=== PATIENT | male | born 1955 | race Caucasian/White ===

== ENCOUNTER 2018-11-04 14:51 | Inpatient (IN) | payer MEDICAID, MEDICARE ==
[~2018-11-04] VITALS: Ht 177.8 cm; Wt 79.2 kg
[~2018-11-04 14:51] MED LIST: CLON2TAB PO; QUET300T2 PO; SULF1TAB48 PO
--- NOTE | 2018-11-04 15:10 | NUR ---
[id number], FROM HOME, C/O UNABLE TO URINATE SINCE LAST NIGHT, WITH BURNING SENSATION. PAIN IS 8/10. DENIES DIZZINESS, WEAKNESS. SKIN INTACT AND NO ACUTE DISTRESS NOTED. READY FOR EVAL.
[2018-11-04 15:24] LABS: BASOPHILS % (AUTO) 0.6 % (0.0-2.0); EOSINOPHILS % (AUTO) 3.2 % (0.0-6.0); HEMATOCRIT 46 % (39-51); HEMOGLOBIN 15.6 g/dL (13.5-17.5); LYMPHOCYTES # (AUTO) 1.9 /CMM (0.8-4.8); LYMPHOCYTES % (AUTO) 31.1 % (20.0-44.0); MEAN CORPUSCULAR HGB CONC 34 g/dl (31.0-36.0); MEAN CORPUSCULAR VOLUME 93 fL (80-96); MONOCYTES % (AUTO) 16.4 % (2.0-12.0); NEUTROPHILS % (AUTO) 48.7 % (43.0-81.0); PLATELET COUNT (AUTO) 288 /CMM (150-450); RED BLOOD CELL COUNT(AUTO) 4.92 MIL/uL (4.5-6.0); WHITE BLOOD COUNT (AUTO) 6.1 K/uL (4.3-11.0)
[2018-11-04] MEDS ORDERED: IV NS 0.9% 1,000 ML IV ONE (15:30)
[2018-11-04] MEDS ORDERED: MORPHINE SULFATE INJ 2 MG/ML DISP.SYRIN IV ONE ×2 (15:30→20:30)
[2018-11-04] MEDS ORDERED: IV NS 0.9% 1,000 ML BAG IV ONE ×2 (15:30)
[2018-11-04] MEDS ORDERED: PIPERACILLIN /TAZOBACTAM 3.375 G in IV D5W 50 ML IV ONE (15:30)
[2018-11-04] MEDS ORDERED: MORPHINE SULFATE INJ 2 MG/ML DISP.SYRIN ONE ×2 (15:31→19:45)
[2018-11-04 15:33] LABS: CALCIUM, SERUM 8.8 mg/dL (8.5-10.1); CREATININE 0.9 mg/dL (0.6-1.3); POTASSIUM 3.4 mmol/L (3.5-5.1)
[2018-11-04 15:35] LABS: ALBUMIN 3.7 g/dL (3.4-5.0); BILIRUBIN,DIRECT 0.1 mg/dL (0.0-0.2); BILIRUBIN,TOTAL 0.3 mg/dL (0.2-1.0); TOTAL PROTEIN, SERUM 7.1 g/dL (6.4-8.2)
[2018-11-04 17:03] LABS: APPEARANCE,URINE Clear (CLEAR); BILIRUBIN,URINE Negative (NEGATIVE); BLOOD, URINE Moderate Ery/uL (NEGATIVE); COLOR,URINE Yellow (YELLOW); KETONES,URINE Negative (NEGATIVE); LEUKOCYTE ESTERASE ,URINE Negative (NEGATIVE); NITRITE, URINE Negative (NEGATIVE); PH,URINE 6.5 (5.0-8.0); PROTEIN,URINE Negative (NEGATIVE); UGLUCOSE Negative (NEGATIVE); UROBILINOGEN,URINE 0.2 EU/dL (0.2)
--- NOTE | 2018-11-04 17:07 | NUR ---
PROVIDED FOOD TRAY
[2018-11-04 17:12] LABS: BACTERIA,URINE Rare /HPF (None Seen); RBC,URINE 21-50 /HPF (0-2); SQUAMOUS EPITHELIAL CELL,UR Few /HPF (None Seen); WBC,URINE 0-2 /HPF (0-3)
[2018-11-04] MEDS ORDERED: ACETAMINOPHEN 325 MG TABLET PO PRN (19:30)
[2018-11-04] MEDS ORDERED: TAMSULOSIN 0.4 MG CAP.SR.24H PO ONE (19:30)
[2018-11-04] MEDS ORDERED: ONDANSETRON HCL/PF 4 MG/2 ML VIAL IVP PRN (19:30)
[2018-11-04] MEDS ORDERED: MAGNESIUM HYDROXIDE 30 ML UDC PO PRN (19:30)
[2018-11-04] MEDS ORDERED: Z GUARD REMEDY 2 OZ OINT TP PRN (19:30)
[2018-11-04] MEDS ORDERED: ZOLPIDEM TARTRATE 5 MG TABLET PO PRN (19:30)
--- NOTE | 2018-11-04 19:35 | NUR ---
PT C/O PAIN 04/17, REQUESTING MEDICATION. MD AWARE. MADE PT COMFORTABLE
[2018-11-04] MEDS ORDERED: OXYBUTYNIN CHLORIDE 5 MG TABLET ONE (19:45)
--- NOTE | 2018-11-04 19:55 | NUR ---
CALLED HOUSE SUP (2ND TIME) [facility] TELE BED.
--- NOTE | 2018-11-04 20:07 | NUR ---
Patient is resting comfortably in bed with eyes closed. Easily aroused. VSS
[2018-11-04] MEDS ORDERED: OXYBUTYNIN CHLORIDE 5 MG TABLET PO ONE (20:30)
--- NOTE | 2018-11-04 20:43 | NUR ---
MEDSUR BED 328-B
[2018-11-04 21:00] VITALS: BP 115/70
--- NOTE | 2018-11-04 21:05 | NUR ---
REPORT GIVEN TO DONNA VALERIO 328-2 [facility]
--- NOTE | 2018-11-04 21:15 | NUR ---
[facility]
[2018-11-04 21:20] VITALS: BP 115/70
--- NOTE | 2018-11-04 21:20 | NUR ---
RN NOTES RECEIVED PT. FROM ER WITH DX. OF URINARY RETENTION, A/OX4, , COUDE CASE CATHETER WAS INSERTED IN ER, PER PATIENT THEY TRIED TO INSERT IT 3X, NOTICED F/C WAS LEAKING AND OUTPUT WAS REDDISH...INFORMED CHARGE NURSE AND CALLED ICU CHARGE IF THEY CAN FIX IT, ADMISSION INSTRUCTION WAS RENDERED, CALL LIGHT WITHIN REACH, SIDERAILSUPX2, CONTINUE TO MONITOR
--- NOTE | 2018-11-04 21:30 | NUR ---
RN NOTES PT. REFUSED TO HAVE HIS BILATERAL LOWER EXTREMITIES CHECKED
--- NOTE | 2018-11-04 22:00 | NUR ---
RN NOTES ICU CHARGE NURSE CAME AND CHECK PT'S CASE CATHETER.. ICU CHARGE NURSE DEFLATE IT AND INFLATE THE BALLOON AGAIN WITH 10ML NS
[2018-11-04] MEDS ORDERED: CEFTRIAXONE 1 G VIAL ONE (22:34)
[2018-11-04] MEDS ORDERED: TAMSULOSIN 0.4 MG CAP.SR.24H ONE (22:38)
[2018-11-04] MEDS: CEFTRIAXONE 1 G in IV D5W 50 ML IV SCH (22:40)
--- NOTE | 2018-11-05 00:22 | NUR ---
RN NOTES PT. WAS A LITTLE BIT ANXIOUS AND WAS ASKING FOR ATIVAN.. PT STATED "THE LAST TIME HE WAS HERE THEY GAVE HIM ATIVAN AND IT HELPED HIM A LOT" DR. VALERA ORDERED ATIVAN 0.5MG IV ONCE..ORDER NOTED AND CARRIED OUT
[2018-11-05] MEDS ORDERED: LORAZEPAM INJ 2 MG/ML VIAL IV ONE (00:30)
--- NOTE | 2018-11-05 00:39 | NUR ---
RN NOTES PT. IS A LITTLE BIT ANXIOUS - ATIVAN 0.5MG IV GIVEN ORDERED, V/S STABLE
[2018-11-05] MEDS: MAG HYDROX/AL HYDROX/SIMETH 30 ML UDC PO PRN ×2 (05:29→18:10)
[2018-11-05] MEDS: HYDROCODONE/APAP 5/325MG 1 EACH TABLET PO PRN ×4 (06:31→21:24)
--- NOTE | 2018-11-05 06:34 | NUR ---
RN NOTES COMPLAINED OF PAIN ON HIS PRIVATE PART- NORCO 5/325MG PO GIVEN ORDERED, V/S STABLE
--- NOTE | 2018-11-05 06:36 | NUR ---
RN NOTES PT. CASE CATHETER STILL LEAKING A LITTLE BIT BUT PT. DOESN'T LET US TO TOUCH IT, HE'S GOING TO WAIT FOR THE DOCTOR TO COME THIS MORNING,. PT. REFUSED CHANGE HIS LINEN AND BLANKETCALL LIGHT WITHIN REACH, SDIERAILSUPX2, PT. NEEDS ATTENDED
--- NOTE | 2018-11-05 07:20 | NUR ---
RN OPENING NOTES PT AWAKE AND RESTING IN BED. PT COMPLAINS THAT HIS CASE CATHETER IS UNCOMFORTABLE. AT THIS TIME THE CASE IS DRAINING WELL. WILL CONTINUE TO FOLLOW UP WITH PAIN MANAGEMENT NEEDED AND PRESCRIBED. PT HAS A RIGHT AC #20 INTACT. SAFETY PRECAUTIONS IN PLACE, BED IN LOWEST LOCKED POSITION, X2 SIDE RAILS UP AND CALL LIGHT WITHIN REACH. WILL CONTINUE TO MONITOR.
[2018-11-05 07:49] LABS: BASOPHILS % (AUTO) 0.4 % (0.0-2.0); EOSINOPHILS % (AUTO) 5.3 % (0.0-6.0); HEMATOCRIT 45 % (39-51); HEMOGLOBIN 15.1 g/dL (13.5-17.5); LYMPHOCYTES # (AUTO) 1.6 /CMM (0.8-4.8); LYMPHOCYTES % (AUTO) 21.1 % (20.0-44.0); MEAN CORPUSCULAR HGB CONC 34 g/dl (31.0-36.0); MEAN CORPUSCULAR VOLUME 93 fL (80-96); MONOCYTES # (AUTO) 1.1 /CMM (0.1-1.30); MONOCYTES % (AUTO) 14.1 % (2.0-12.0); NEUTROPHILS # (AUTO) 4.5 /CMM (1.8-8.9); NEUTROPHILS % (AUTO) 59.1 % (43.0-81.0); PLATELET COUNT (AUTO) 256 /CMM (150-450); RED BLOOD CELL COUNT(AUTO) 4.84 MIL/uL (4.5-6.0); WHITE BLOOD COUNT (AUTO) 7.7 K/uL (4.3-11.0)
[2018-11-05 07:59] LABS: ALBUMIN 3.4 g/dL (3.4-5.0); BILIRUBIN,TOTAL 0.3 mg/dL (0.2-1.0); CALCIUM, SERUM 8.9 mg/dL (8.5-10.1); CREATININE 0.8 mg/dL (0.6-1.3); PHOSPHORUS 2.4 mg/dL (2.5-4.9); POTASSIUM 3.9 mmol/L (3.5-5.1); TOTAL PROTEIN, SERUM 6.8 g/dL (6.4-8.2)
[2018-11-05 08:00] VITALS: BP 140/96
[2018-11-05 09:24] LABS: FREE PSA 0.87 ng/mL (0.00-45); PROSTATE SPECIFIC ANTIGEN SCR 10.61 ng/mL (0.00-4.00)
[2018-11-05] MEDS: NICOTINE PATCH (21MG) 21 MG PATCH.TD24 TD SCH (09:46)
[2018-11-05] MEDS: clonazePAM 1 MG TABLET PO SCH (09:46)
[2018-11-05] MEDS ORDERED: K PHOS NEUTRAL 250 MG TABLET PO ONE (11:30)
[2018-11-05 16:00] VITALS: BP 128/74
--- NOTE | 2018-11-05 18:59 | NUR ---
RN CLOSING NOTES PT AWAKE AND RESTING IN BED. STILL AWAITING UROLOGY CONSULT. PAIN MANAGED WITH PRN NORCO 5/325. PT REQUESTED MAALOX. PT HAS A RIGHT AC #20 INTACT. SAFETY PRECAUTIONS IN PLACE, BED IN LOWEST LOCKED POSITION, X2 SIDE RAILS UP AND CALL LIGHT WITHIN REACH. WILL ENDORSE TO ROUND KILN DRAWER FOR CONTINUITY OF CARE.
--- NOTE | 2018-11-05 19:30 | NUR ---
RN NOTES RECEIVED PT. AWAKE ON BED, F/C DRAINING CLEAR TAYLOR IN COLOR, DENIES PAIN, NO SOB, CALL LIGHT WITHIN REACH, SDIERAILSUPX2, CONTINUE TO MONITOR
[2018-11-05 20:00] VITALS: BP 104/57
[2018-11-05] MEDS: CEFTRIAXONE 1 G in IV D5W 50 ML IV SCH (21:24)
--- NOTE | 2018-11-05 21:30 | NUR ---
RN NOTES COMPLAINED OF PAIN ON HIS PRIVATE PART- NORCO 5/325MG PO GIVEN ORDERED, V/S STABLE
--- NOTE | 2018-11-05 22:10 | NUR ---
RN NOTES DR. DELGADO CAME AND TALKED TO THE PATIENT
[2018-11-05] MEDS ORDERED: TAMSULOSIN 0.4 MG CAP.SR.24H PO SCH (22:30)
[2018-11-05] MEDS: FINASTERIDE (5 MG) 5 MG TABLET PO SCH (22:43)
--- NOTE | 2018-11-06 06:30 | NUR ---
RN NOTES SLEEPING BUT AROUSABLE, F/C IN PLACE, NO PAIN NOTED, NO SOB, CALL LIGHT WITHIN REACH, SIDERAILSUPX2, PT. NEEDS ATTENDED
[2018-11-06] MEDS: clonazePAM 1 MG TABLET PO SCH (07:01)
--- NOTE | 2018-11-06 07:30 | NUR ---
RN OPENING NOTES PT AWAKE AND RESTING IN BED. PT STATED THAT HE WILL BE LEAVING TODAY AND WILL FOLLOW UP WITH UROLOGIST. WILL FOLLOW UP WITH HOSPITALIST. WILL CONTINUE TO FOLLOW UP WITH PAIN MANAGEMENT NEEDED AND PRESCRIBED. PT HAS A RIGHT AC #20 INTACT. SAFETY PRECAUTIONS IN PLACE, BED IN LOWEST LOCKED POSITION, X2 SIDE RAILS UP AND CALL LIGHT WITHIN REACH. WILL CONTINUE TO MONITOR.
[2018-11-06 08:00] VITALS: BP 133/98
[2018-11-06] MEDS: NICOTINE PATCH (21MG) 21 MG PATCH.TD24 TD SCH (08:29)
[2018-11-06] MEDS: FINASTERIDE (5 MG) 5 MG TABLET PO SCH (08:29)
[2018-11-06 08:45] LABS: CALCIUM, SERUM 9.1 mg/dL (8.5-10.1); CREATININE 0.6 mg/dL (0.6-1.3); PHOSPHORUS 2.1 mg/dL (2.5-4.9); POTASSIUM 4.3 mmol/L (3.5-5.1)
[2018-11-06] MEDS: HYDROCODONE/APAP 5/325MG 1 EACH TABLET PO PRN (08:54)
[2018-11-06] MEDS: MAG HYDROX/AL HYDROX/SIMETH 30 ML UDC PO PRN (08:55)
--- NOTE | 2018-11-06 09:24 | NUR ---
RN NOTES PER GONSALEZ REMOVE CASE CATHETER AND FOLLOW UP WITH URINE OUTPUT. CASE CATHETER REMOVED. WILL CONTINUE TO MONITOR.
--- NOTE | 2018-11-06 10:00 | NUR ---
RN NOTES PT URINATING WELL WITHOUT CASE CATHETER. NOW REQUESTING TO LEAVE. WILL FOLLOW UP WITH DR URIOSTEGUI.
--- NOTE | 2018-11-06 12:45 | NUR ---
CONTINUUM OF CARE MANAGER NOTES PT VITAL SIGNS STABLE AT DISCHARGE. CASE CATHETER REMOVED, AND PATIENT URINATING WELL. DISCHARGE PRESCRIPTIONS GIVEN TO PATIENT. CIGARETTES AND SPECIAL PROJECTS MANAGER RETURNED BACK TO THE PATIENT. ALL PATIENT BELONGINGS TAKEN HOME WITH PATIENT. ALL DISCHARGE PAPER WORK EXPLAINED, SIGNED, COPIED, AND GIVEN TO THE PATIENT. IV REMOVED. PT AMBULATORY, PT LEFT UNIT AT 1245.
== END 2018-11-06 11:52 | disposition home or self-care (01) | DRG 690 ==
LOC: ER 14:51 → MED 21:05
PROVIDERS: ADMIT Internal Medicine; ATTEND Internal Medicine
DX: N39.0 Urinary tract infection, site not specified (principal); E87.1 Hypo-osmolality and hyponatremia; M84.48XA Pathological fracture, other site, initial encounter for fracture; E87.6 Hypokalemia; R33.8 Other retention of urine; N40.1 Benign prostatic hyperplasia with lower urinary tract symptoms; E11.9 Type 2 diabetes mellitus without complications; I10 Essential (primary) hypertension; M19.90 Unspecified osteoarthritis, unspecified site; Z98.890 Other specified postprocedural states; Z87.440 Personal history of urinary (tract) infections
CPT/HCPCS: 36415; 80048-TC; 80053-TC; 80061-TC; 80076-TC; 81000-TC; 83605-TC; 83690-TC; 83735-TC; 84100-TC; 84153-TC; 84154-TC; 85025-TC; 85730-TC; 87040-TC; 87081-TC; 87086-TC; G0378; J0696; J2060; J2270; J2543; J7030; J7050; J7060

== ENCOUNTER 2018-12-09 16:30 | Emergency (ER) | payer MEDICARE ==
[~2018-12-09] VITALS: Ht 177.8 cm; Wt 77.6 kg
--- NOTE | 2018-12-09 16:37 | NUR ---
BIB RA FROM HOME, C/O GENERALIZED WEAKNES,DIARRHEa and nausea x 3 days. -VOMIT, -FEVER. SKIN WARM, DRY, INTACT. NO ACUTE DISTRESS NOTED. AOX4, AMB, VSS, RR EVEN AND UNLABORED ON RA. HOOKED TO MONITOR. READY FOR EVAL.
[2018-12-09] MEDS ORDERED: ONDANSETRON HCL/PF 4 MG/2 ML VIAL ONE (16:57)
[2018-12-09] MEDS ORDERED: MORPHINE SULFATE INJ 4 MG/ML DISP.SYRIN ONE (16:58)
[2018-12-09] MEDS ORDERED: MORPHINE SULFATE INJ 2 MG/ML DISP.SYRIN IV ONE (17:00)
[2018-12-09] MEDS ORDERED: ONDANSETRON HCL/PF 4 MG/2 ML VIAL IVP ONE (17:00)
[2018-12-09] MEDS ORDERED: IV NS 0.9% 1,000 ML BAG IV ONE (17:00)
[2018-12-09 17:19] LABS: BASOPHILS # (AUTO) 0.1 /CMM (0.0-0.2); BASOPHILS % (AUTO) 0.9 % (0.0-2.0); EOSINOPHILS % (AUTO) 1.3 % (0.0-6.0); HEMATOCRIT 44 % (39-51); HEMOGLOBIN 14.7 g/dL (13.5-17.5); LYMPHOCYTES # (AUTO) 2.2 /CMM (0.8-4.8); LYMPHOCYTES % (AUTO) 32.8 % (20.0-44.0); MEAN CORPUSCULAR HGB CONC 33 g/dl (31.0-36.0); MEAN CORPUSCULAR VOLUME 93 fL (80-96); MONOCYTES # (AUTO) 0.7 /CMM (0.1-1.30); MONOCYTES % (AUTO) 10.6 % (2.0-12.0); NEUTROPHILS # (AUTO) 3.7 /CMM (1.8-8.9); NEUTROPHILS % (AUTO) 54.4 % (43.0-81.0); PLATELET COUNT (AUTO) 280 /CMM (150-450); WHITE BLOOD COUNT (AUTO) 6.8 K/uL (4.3-11.0)
[2018-12-09 17:33] LABS: ALANINE AMINOTRANSFERASE 14 U/L (12-78); ALBUMIN 3.5 g/dL (3.4-5.0); ALKALINE PHOSPHATASE 73 U/L (46-116); ASPARTATE AMINOTRANSFERASE 12 U/L (15-37); BILIRUBIN,DIRECT 0.1 mg/dL (0.0-0.2); BILIRUBIN,TOTAL 0.1 mg/dL (0.2-1.0); CALCIUM, SERUM 8.9 mg/dL (8.5-10.1); CARBON DIOXIDE 28 mmol/L (21-32); CHLORIDE 107 mmol/L (98-107); CREATININE 0.9 mg/dL (0.6-1.3); LIPASE 120 U/L (73-393); POTASSIUM 3.1 mmol/L (3.5-5.1); SODIUM SERUM 143 mmol/L (136-145); TOTAL PROTEIN, SERUM 6.9 g/dL (6.4-8.2); UREA NITROGEN, BLOOD 5 mg/dL (7-18)
[2018-12-09] MEDS ORDERED: POTASSIUM CHLORIDE 20 MEQ TAB.PRT.SR PO ONE ×2 (17:49→18:00)
[2018-12-09 17:57] LABS: GLUCOSE 105 mg/dL (74-106)
--- NOTE | 2018-12-09 18:32 | NUR ---
Patient is resting comfortably in bed with eyes closed. Easily aroused. VSS
[2018-12-09 18:46] LABS: APPEARANCE,URINE Clear (CLEAR); BILIRUBIN,URINE Negative (NEGATIVE); BLOOD, URINE Negative Ery/uL (NEGATIVE); COLOR,URINE Yellow (YELLOW); KETONES,URINE Negative (NEGATIVE); LEUKOCYTE ESTERASE ,URINE Small (NEGATIVE); NITRITE, URINE Positive (NEGATIVE); PH,URINE 6.5 (5.0-8.0); PROTEIN,URINE Negative (NEGATIVE); UGLUCOSE Negative (NEGATIVE); UROBILINOGEN,URINE 0.2 EU/dL (0.2)
[2018-12-09 19:01] LABS: BACTERIA,URINE Moderate /HPF (None Seen); RBC,URINE 0-2 /HPF (0-2); SQUAMOUS EPITHELIAL CELL,UR Few /HPF (None Seen); URINE AMORPHOUS URATE Few /HPF (None Seen)
[2018-12-09] MEDS ORDERED: CEFTRIAXONE 1GM BAG (ER ONLY) 1 GM/50 ML PIGGYBACK IV ONE (19:30)
[2018-12-09] MEDS ORDERED: CEFTRIAXONE 1GM BAG (ER ONLY) 50 ML IV ONE (19:32)
--- NOTE | 2018-12-09 20:03 | NUR ---
IV removed. Catheter intact and site benign. Pressure and 4x4 applied to site. No bleeding noted. Patient discharged to home in stable condition. Written and verbal after care instructions given. Patient verbalizes understanding of instruction.
[2018-12-09 20:51] VITALS: BP 122/80
== END 2018-12-09 20:03 | disposition home or self-care (01) ==
LOC: ER 16:33
DX: N39.0 Urinary tract infection, site not specified (principal); E87.6 Hypokalemia; E11.9 Type 2 diabetes mellitus without complications; R19.7 Diarrhea, unspecified; F17.200 Nicotine dependence, unspecified, uncomplicated; Z98.890 Other specified postprocedural states
CPT/HCPCS: 36415; 71045; 80048; 80076; 81001; 83690; 83735; 84484; 85025; 87077; 87086; 87186; 93005; 96361; 96365; 96375; 99284; J0696; J2270; J2405; J7030; 81000-TC

== ENCOUNTER 2019-04-20 12:10 | Inpatient (IN) | payer MEDICARE, MEDICAID ==
[~2019-04-20] VITALS: Ht 177.8 cm; Wt 75.3 kg
--- NOTE | 2019-04-20 12:10 | NUR ---
BIB RA 890, EX CALLED 911 WHEN HE CAME INTO HER HOME SINCE HE DIDN'T HAVE A PLACE TO STAY. A/OX4, BREATHING EVEN AND UNLABORED, NO SOB NOTED, KEPT COMFORTABLE IN BED, CHANGED INTO GOWN, ATTACHED TO THE CANAL STRUCTURE OPERATOR.
[2019-04-20] MEDS ORDERED: ALBUTEROL FS 2.5 MG/3 ML VIAL.NEB NEB ONE (12:30)
[2019-04-20] MEDS ORDERED: IPRATROPIUM NEB FS 0.5 MG/2.5 ML AMPUL.NEB NEB ONE (12:30)
[2019-04-20 12:50] LABS: BASOPHILS # (AUTO) 0.1 /CMM (0.0-0.2); BASOPHILS % (AUTO) 0.7 % (0.0-2.0); EOSINOPHILS % (AUTO) 1.1 % (0.0-6.0); HEMATOCRIT 43 % (39-51); HEMOGLOBIN 14.6 g/dL (13.5-17.5); LYMPHOCYTES # (AUTO) 1.8 /CMM (0.8-4.8); LYMPHOCYTES % (AUTO) 19.3 % (20.0-44.0); MEAN CORPUSCULAR HGB CONC 34 g/dl (31.0-36.0); MEAN CORPUSCULAR VOLUME 94 fL (80-96); MONOCYTES # (AUTO) 0.6 /CMM (0.1-1.30); MONOCYTES % (AUTO) 6.9 % (2.0-12.0); NEUTROPHILS # (AUTO) 6.6 /CMM (1.8-8.9); PLATELET COUNT (AUTO) 207 /CMM (150-450); RED BLOOD CELL COUNT(AUTO) 4.56 MIL/uL (4.5-6.0); WHITE BLOOD COUNT (AUTO) 9.2 K/uL (4.3-11.0)
[2019-04-20] MEDS ORDERED: IPRATROPIUM NEB FS 0.5 MG/2.5 ML AMPUL.NEB ONE (12:51)
[2019-04-20] MEDS ORDERED: ALBUTEROL FS 2.5 MG/3 ML VIAL.NEB ONE (12:51)
[2019-04-20 12:59] LABS: CALCIUM, SERUM 8.7 mg/dL (8.5-10.1); CARBON DIOXIDE 26 mmol/L (21-32); CHLORIDE 105 mmol/L (98-107); GLUCOSE 133 mg/dL (74-106); POTASSIUM 3.8 mmol/L (3.5-5.1); SODIUM SERUM 141 mmol/L (136-145); UREA NITROGEN, BLOOD 6 mg/dL (7-18)
[2019-04-20 13:11] LABS: B-TYPE NATRIURETIC PEPTIDE 384 PG/ML (0-125)
--- NOTE | 2019-04-20 14:09 | NUR ---
CALLED MOLY[employer] STEAMER OPERATOR FOR HOMELESS RESOURCES
--- NOTE | 2019-04-20 14:56 | NUR ---
PATIENT SEEN BY ARDMORE GRINDER SET UP OPERATOR EXTERNAL. PATIENT C/O FEELING DEPRESSED, WANT TO BE ADMITTED VOLUNTARY AT [facility].
--- NOTE | 2019-04-20 15:03 | NUR ---
Social service consult requested by Dr. Huff for homelessness and nursing home. Pt. is 64 year old male who was brought in by rescue ambulance for feeling unwell. Pt. has a past medical history of hypertension, diabetes, COPD, prostate cancer, psychiatric illness and homelessness. SW met with pt. bedside. Pt. appears dirty and disheveled. Pt's face appears to have a reza from being in the sun from staying on the streets. Pt. has a sad affect. Pt. stated he has been homeless for the past 2 1/2 weeks. He got tired of being on the streets and showed up at his ex-girlfriend Pily Luong's house. Ex-girlfriend called 911 since there is restraining order against the pt. Pt. wouldn't disclose why there is a restraining order. Pt. states he is feeling very depressed due to his housing situation and being homeless. Pt. is permanently disabled and receives approximately $1069 per month of SSDI. Pt. states he has a diagnosis of Depression and takes Seroquel and Klonopin. Pt. informed SW that he has Arthritis and takes [place] and Morphine for pain. Pt. smokes 2 pack of cigarettes per day. Pt. denies any alcohol or drug use at this time. Pt. was provided with a meal while in ED. Pt is willing to go voluntary to [facility] for medication management and stabilization. MIGUEL consulted with Lanre in intake regarding pt. willing to go voluntary to [facility]. Pt. will require placement upon discharge. Pt. signed Voluntary form and was placed in the chart. ED physician Dr. Villegas, ED CRVivi Gustafson and pt's RN My have been updated with pt's discharge plan.
--- NOTE | 2019-04-20 15:30 | NUR ---
food tray provided.
[2019-04-20 15:44] LABS: BILIRUBIN,URINE Negative (NEGATIVE); BLOOD, URINE Trace-intact Ery/uL (NEGATIVE); COLOR,URINE Yellow (YELLOW); KETONES,URINE Negative (NEGATIVE); LEUKOCYTE ESTERASE ,URINE Large (NEGATIVE); NITRITE, URINE Negative (NEGATIVE); PROTEIN,URINE Negative (NEGATIVE); UGLUCOSE Negative (NEGATIVE); UROBILINOGEN,URINE 0.2 EU/dL (0.2)
[2019-04-20 15:46] LABS: APPEARANCE,URINE HAZY (CLEAR)
[2019-04-20 15:53] LABS: SALICYLATE 5.3 mg/dL (2.8-20.0)
[2019-04-20 15:56] LABS: ACETAMINOPHEN 0 ug/ml (10-30); ALCOHOL, BLOOD < 3 mg/dL (0-0)
[2019-04-20 15:56] LABS: BACTERIA,URINE Many /HPF (None Seen); WBC,URINE 21-50 /HPF (0-3)
[2019-04-20 15:57] LABS: SQUAMOUS EPITHELIAL CELL,UR Few /HPF (None Seen)
--- NOTE | 2019-04-20 16:39 | NUR ---
CALLED INTAKE AND LEFT VOICEMAIL CONFIRMING DR LARA ADMITTING PSYCHIATRIST
--- NOTE | 2019-04-20 16:43 | NUR ---
INTAKE CONFIRMED DR LARA ADMITTING PSYCHIATRIST
--- NOTE | 2019-04-20 17:00 | NUR ---
RECIEVED BED 117-2
--- NOTE | 2019-04-20 17:08 | NUR ---
REPORT GIVEN TO GEOVANNI PARK FOR HALEY.
[2019-04-20] MEDS ORDERED: HYDR-3980 PO (17:31)
[2019-04-20] MEDS ORDERED: TAMS-12 PO (17:31)
[2019-04-20] MEDS ORDERED: MORP30TA59 PO (17:31)
[2019-04-20] MEDS ORDERED: RANI150C4 PO (17:31)
[2019-04-20] MEDS ORDERED: QUET400T PO (17:31)
[2019-04-20] MEDS ORDERED: CELE-85 PO (17:31)
[2019-04-20] MEDS ORDERED: PREG150C PO (17:32)
--- NOTE | 2019-04-20 18:05 | NUR ---
PER JOCELYNE, CURRENT 117-1 PATIENT STILL WAITING FOR AMBULANCE PICKUP/DISCHARGE, UNABLE TO TRANSFER PATIENT TO ROOM YET.
--- NOTE | 2019-04-20 19:13 | NUR ---
PATIENT TRANSFERRED TO ROOM 117-1 IN STABLE CONDITION, PATIENT ALERT AND ORIENTED X3, COOPERATIVE. NO DISTRESS NOTED.
--- NOTE | 2019-04-20 19:19 | NUR ---
EMELY FROM [facility] PAGED FOR ADMITTING ORDERS.AWAITS RESPONSE.
[2019-04-20 19:30] VITALS: BP 155/84
--- NOTE | 2019-04-20 19:30 | NUR ---
GPS ADMISSION NOTE, RECEIVED PATIENT FROM [facility] PATIENT ARRIVED ON THIS UNIT AT 1930 VIA WHEEL CHAIR WITH 1 REVENUE INVESTIGATOR ESCORT. PATIENT ADMITTED VOLUNTARY. UPON FACE TO FACE ASSESSMENT PATIENT IS NOTED TO BEING ANXIOUS, DISHEVELED, DISORGANIZED, COOPERATIVE, PARANOID, AND NEEDS REDIRECTION. PATIENT IS CURRENTLY LYING IN BED AWAKE, HAS NO S/S OR COMPLAINTS OF PAIN. PATIENT IS DISPLAYING NO S/S OF APPARENT DISTRESS. PATIENT BREATHING IS UNLABORED WITH EQUAL RISE AND FALL OF THE CHEST. PATIENT IS ALERT AND ORIENTATED X 3 ON ROOM AIR. PATIENT ASSISTED WITH TURING AND REPOSITIONING Q2HR AND PRN FOR COMFORT AND CIRCULATION. PATIENT HAS NO NEEDS AT THIS TIME. PATIENT DENIES SUICIDE IDEATIONS AND HOMICIDAL IDEATIONS AT THIS TIME. PATIENT SIGNED ALL PAPER WORK. PATIENT RIGHTS BOOKLET GIVEN. PATIENT IS UNDER THE PSYCHIATRIC CARE OF DR. LARA AND THE MEDICAL CARE OF DR MERCEDES. PATIENT BELONGINGS WERE INVENTORIED AND CHECKED FOR CONTRABAND. ALL CONTRABAND REMOVED AND STORED IN PATIENT HALLWAY LOCKER. PATIENT ADVANCED DIRECTIVES PREFERENCE, IMMUNIZATIONS QUESTIONER, NECESSARY PAPERWORK COMPLETED. PATIENT SKIN ASSESSMENT COMPLETED. PATIENT ORIENTATED TO ROOM, FLOOR, AND STAFF WITH ALL QUESTIONS ANSWERED. PATIENT EDUCATED ON THE USE OF THE CALL BYERS. PATIENT BED SIDE RAILS ARE UP X 2 FOR SAFETY. PATIENT BED IS LOCKED, LOW AND I WILL CONTINUE TO MONITOR THIS PATIENT Q 15 MIN WITH THE HELP OF STAFF TO MAINTAIN SAFETY.
[2019-04-20] MEDS ORDERED: ONDANSETRON HCL/PF 4 MG/2 ML VIAL IVP PRN (20:00)
[2019-04-20] MEDS ORDERED: ALBUTEROL FS 2.5 MG/3 ML VIAL.NEB NEB PRN (20:00)
[2019-04-20] MEDS ORDERED: IPRATROPIUM NEB FS 0.5 MG/2.5 ML AMPUL.NEB NEB PRN (20:00)
[2019-04-20] MEDS ORDERED: ACETAMINOPHEN 325 MG TABLET PO PRN ×2 (20:00→21:00)
[2019-04-20] MEDS ORDERED: MAG HYDROX/AL HYDROX/SIMETH 30 ML UDC PO PRN ×2 (20:00→21:00)
[2019-04-20] MEDS ORDERED: CLONIDINE HCL 0.1 MG TABLET PO PRN (20:00)
[2019-04-20] MEDS ORDERED: MAGNESIUM HYDROXIDE 30 ML UDC PO PRN ×2 (20:00→21:00)
[2019-04-20] MEDS ORDERED: LORAZEPAM 0.5 MG TABLET PO PRN (21:00)
[2019-04-20] MEDS: TAMSULOSIN 0.4 MG CAP.SR.24H PO SCH (21:51)
[2019-04-20] MEDS: CEPHALEXIN MONOHYDRATE 500 MG CAPSULE PO SCH (21:51)
[2019-04-21] MEDS: HYDROCODONE/APAP 10/325MG 1 EA TABLET PO PRN ×4 (04:11→21:33)
--- NOTE | 2019-04-21 04:11 | NUR ---
GPS RN NOTE, PATIENT HAS A COMPLAINT OF LOWER BACK PAIN AT 7 OUT OF 10 ON THE PAIN SCALE AND IS REQUESTING NORCO AT THIS TIME. PATIENT VITAL SIGNS ARE STABLE. GAVE NORCO 10 -325 1 TAB PO Q4HR PRN ORDERED. WILL REASSESS PATIENT FOR PAIN AND I WILL CONTINUE TO MONITOR THIS PATIENT.
--- NOTE | 2019-04-21 06:25 | NUR ---
GPS RN NOTE, PATIENT HAS A COMPLAINT OF FEELING ANXIOUS AND IS REQUESTING ATIVAN AT THIS TIME. PATIENT VITAL SIGNS ARE STABLE. GAVE ATIVAN 0.5MG PO Q6HR PRN ORDERED. WILL REASSESS FOR ANXIETY AND I WILL CONTINUE TO MONITOR THIS PATIENT.
[2019-04-21 07:05] LABS: CREATININE 1.1 mg/dL (0.6-1.3)
[2019-04-21 07:18] LABS: THYROID STIMULATING HORMONE 0.254 uIU/mL (0.358-3.74)
[2019-04-21 07:30] LABS: MAGNESIUM 2.1 mg/dL (1.8-2.4); PHOSPHORUS 2.7 mg/dL (2.5-4.9)
[2019-04-21] MEDS: PANTOPRAZOLE 40 MG TABLET.DR PO SCH (08:31)
[2019-04-21] MEDS: CEPHALEXIN MONOHYDRATE 500 MG CAPSULE PO SCH ×2 (08:31→20:16)
[2019-04-21] MEDS: NICOTINE PATCH (14MG) 14 MG PATCH.TD24 TD SCH (08:43)
[2019-04-21 09:14] VITALS: BP 101/66
[2019-04-21] MEDS ORDERED: clonazePAM 0.5 MG TABLET PO PRN ×3 (12:30→18:00)
--- NOTE | 2019-04-21 12:55 | NUR ---
RN NOTE: PATIENT C/O ANXIETY, PRN KLONOPIN GIVEN. PATIENT HAS COME UP TO BE SEVERAL TIMES ASKING FOR HIS ANTI-ANXIETY. I INFORMED PATIENT THAT HE IS PRESCRIBED THE MEDICATION TWICE A DAY. PATIENT'S BODY IS RELAXED, NO DISTRESS NOTED, PATIENT DOES NOT PORTRAY ANY PHYSICAL SYMPTOMS OF DISTRESS.
--- NOTE | 2019-04-21 13:56 | NUR ---
RN NOTE: PATIENT APPROACHED ME IN THE HALLS INFORMING ME THAT THERE'S 6 MINUTES LEFT UNTIL HE GETS HIS NORCO AND TO MAKE SURE THAT I DON'T FORGET TO GIVE IT TO HIM AT THAT EXACT TIME.
--- NOTE | 2019-04-21 14:19 | NUR ---
RN NOTE: PATIENT C/O PAIN 03/17. PRN PO NORCO GIVEN.
--- NOTE | 2019-04-21 14:27 | NUR ---
GROUP NOTE Goal: Patient will attend group being held today from 11AM-11:45AM in the activities room and participate and/or actively listen to peers and be respectful. Intervention: SW invited patient to attend group session with peers regarding their support system. SW respected patient�s self-determination and will continue to invite patient to group. Response: Patient declined to participate in today�s group foster care social worker session. Plan: Patient will be invited to attend next foster care social worker group session held.
[2019-04-21 16:00] VITALS: BP 139/75
--- NOTE | 2019-04-21 16:00 | NUR ---
Initial Discharge Plan: Pt is currently homeless. SW will work with the pt and the MD regarding appropriate discharge planning. SW will form a safe and proper discharge.
[2019-04-21] MEDS: FLUVOXAMINE MALEATE 50 MG TABLET PO SCH (16:16)
[2019-04-21] MEDS: clonazePAM 0.5 MG TABLET PO PRN (19:40)
[2019-04-21 20:21] VITALS: BP 121/86
[2019-04-21] MEDS: QUETIAPINE FUMARATE 100 MG TABLET PO SCH (21:02)
[2019-04-21] MEDS: TAMSULOSIN 0.4 MG CAP.SR.24H PO SCH (21:02)
[2019-04-21] MEDS ORDERED: QUETIAPINE FUMARATE 100 MG TABLET PO SCH (22:00)
[2019-04-21] MEDS: TEMAZEPAM 7.5 MG CAPSULE PO PRN (22:22)
[2019-04-22 08:00] VITALS: BP 123/73
[2019-04-22] MEDS: NICOTINE PATCH (14MG) 14 MG PATCH.TD24 TD SCH (08:21)
[2019-04-22] MEDS: CEPHALEXIN MONOHYDRATE 500 MG CAPSULE PO SCH (08:21)
[2019-04-22] MEDS: clonazePAM 0.5 MG TABLET PO SCH ×2 (08:21→16:13)
[2019-04-22] MEDS: PANTOPRAZOLE 40 MG TABLET.DR PO SCH (08:21)
[2019-04-22] MEDS: FLUVOXAMINE MALEATE 50 MG TABLET PO SCH ×2 (08:22→16:13)
[2019-04-22] MEDS: HYDROCODONE/APAP 10/325MG 1 EA TABLET PO PRN ×4 (09:11→22:16)
--- NOTE | 2019-04-22 09:11 | NUR ---
GPS/RN-NOTES PATIENT C/O 7/10 LOWER BACK PAIN AND REQUESTING FOR NORCO. NORCO 10/325MG 1 TAB. P-.O GIVEN PRN ORDER. WILL CONT. MONITORING FOR SAFETY.
[2019-04-22] MEDS: clonazePAM 0.5 MG TABLET PO PRN (10:53)
--- NOTE | 2019-04-22 10:53 | NUR ---
GPS/RN-NOTES PATIENT REQUESTING KLONOPIN STATED" I NEED THE KLONOPIN NOW,FOR MY ANXIETY". KLONOPIN 0.5MG P.O GIVEN PRN ORDER. WILL CONT. MONITORING FOR SAFETY AND BEHAVIOR.
--- NOTE | 2019-04-22 12:11 | NUR ---
GPS/RN-NOTES DR. VALERA MADE AWARE OF PATIENT URINE CULTURE RESULTS WITH T.O ORDER OF BACTRIM DS 1 TAB. P.O BID AND D/C KEFLEX. WILL PUT PATIENT ON CONTACT ISOLATION. NOTED AND CARRIED OUT.
--- NOTE | 2019-04-22 13:33 | NUR ---
GPS/RN-NOTES PATIENT C/O 04/17 BOTH KNEE PAIN AND REQUESTING FOR NORCO. NORCO 10/325MG 1 TAB. P-.O GIVEN PRN ORDER. WILL CONT. MONITORING FOR SAFETY.
--- NOTE | 2019-04-22 13:56 | NUR ---
Dr. Hsu gave an order to transfer pt. to overflow.
--- NOTE | 2019-04-22 14:14 | NUR ---
GPS/RN-NOTES PATIENT TRANSFER TO . 304- A OVERFLOW, REPORT WAS GIVEN TO NINAY SUPERVISOR HOT DIP TINNING. PATIENT LEFT THE UNIT IN STABLE CONDITION ALERT ORIENTED X3 WITH ALL BELONGINGS.
--- NOTE | 2019-04-22 14:50 | NUR ---
M/S RN NOTES PATIENT RECEIVED ALERT AND ORIENTED X3, REPORT GIVEN BY GEORGINA FROM GPS. NO RESPIRATORY DISTRESS, NO C/O PAIN AT THIS TIME. SITTER AT BEDSIDE. BELONGINGS ACCOUNTED FOR, PATIENT'S VALUABLES IN SAFE. PATIENT'S NEEDS ATTENDED. BED ON LOWEST LOCKED POSITION, CALL LIGHT WITHIN REACH.WILL CONTINUE TO MONITOR.
--- NOTE | 2019-04-22 19:00 | NUR ---
M/S RN NOTES PATIENT RESTING IN BED, NO RESPIRATORY DISTRESS, NO C/O PAIN AT THIS TIME. MEDICATION MANAGING PAIN. PATIENT'S NEEDS ATTENDED. NO SI/HI. PATIENT WITH A SITTER AT BEDSIDE. PATIENT'S NEEDS ATTENDED. BED ON LOWEST LOCKED POSITION, CALL LIGHT WITHIN REACH. WILL ENDORSE TO ONCOMING NURSE.
--- NOTE | 2019-04-22 19:21 | NUR ---
GPS RN RECEIVE PT IN BED A/O X 3, STABLE, RESPIRATIONS EVEN AND UNLABORED, SAFETY MEASURES IN PLACE. WILL CONTINUE TO MONITOR.
[2019-04-22 20:00] VITALS: BP 130/87
[2019-04-22] MEDS: SULFAMETH/TRIMETH 800/160 MG 1 UDTAB TABLET PO SCH (20:48)
[2019-04-22] MEDS: TEMAZEPAM 7.5 MG CAPSULE PO PRN (20:49)
[2019-04-22] MEDS: TAMSULOSIN 0.4 MG CAP.SR.24H PO SCH (21:15)
[2019-04-22] MEDS: QUETIAPINE FUMARATE 100 MG TABLET PO SCH (21:15)
[2019-04-23] MEDS: HYDROCODONE/APAP 10/325MG 1 EA TABLET PO PRN ×4 (03:23→20:15)
--- NOTE | 2019-04-23 06:27 | NUR ---
GPS RN PT SLEPT WELL THROUGHOUT THE NIGHT 8 HOURS. KEPT CLEAN AND DRY AND COMFORTABLE. NEEDS ATTENDED AND ANTICIPATED. NURSING CARE RENDERED, PAIN MEDICATED WITH PRN PAIN MEDS WITH RELIEF. SAFETY MEASURES AT ALL TIMES. ENDORSE TO THE NEXT SHIFT.
--- NOTE | 2019-04-23 07:10 | NUR ---
GPS RN OPENING NOTES RECEIVED PT IN BED AWAKE, A/O X2-3. PT WITH A 1:1 SITTER. PT TOLERATING RA, WITH NO ACUTE RESPIRATORY DISTRESS NOTED. PT STATING PAIN AND REQUESTING FOR PRN PAIN MEDICINE. PT DENIES ANY CONCERNS OR QUESTIONS AT THIS TIME. NO PIV NOTED.PT KEPT COMFORTABLE. PT'S BED IN LOWEST, LOCKED POSITION WITH SR X2. WILL CONTINUE PLAN OF CARE.
[2019-04-23] MEDS: PANTOPRAZOLE 40 MG TABLET.DR PO SCH (07:22)
[2019-04-23 08:00] VITALS: BP 119/73
[2019-04-23] MEDS: SULFAMETH/TRIMETH 800/160 MG 1 UDTAB TABLET PO SCH ×2 (08:09→20:15)
[2019-04-23] MEDS: clonazePAM 0.5 MG TABLET PO SCH ×2 (08:09→16:14)
[2019-04-23] MEDS: NICOTINE PATCH (14MG) 14 MG PATCH.TD24 TD SCH (08:09)
[2019-04-23] MEDS: FLUVOXAMINE MALEATE 50 MG TABLET PO SCH ×2 (08:09→16:14)
[2019-04-23] MEDS: clonazePAM 0.5 MG TABLET PO PRN (10:28)
[2019-04-23 16:00] VITALS: BP 116/58
--- NOTE | 2019-04-23 18:43 | NUR ---
GPS RN CLOSING NOTES PT REMAINS IN BED AWAKE, A/O X2-3. PT WITH A 1:1 SITTER. PT TOLERATING RA, WITH NO ACUTE RESPIRATORY DISTRESS NOTED. PT DENIES ANY PAIN OR DISCOMFORT AT THIS TIME. NO PIV NOTED. ALL NEEDS AND CARE PROVIDED. PT KEPT COMFORTABLE. PT'S BED IN LOWEST, LOCKED POSITION WITH SR X2. WILL ENDORSE TO INCOMING NIGHT NURSE FOR HALEY.
--- NOTE | 2019-04-23 19:20 | NUR ---
RN OPENING NOTES Patient received sleeping in bed with 1:1 sitter at bedside. Breathing even and unlabored. Not in any distress, on room air. No complaints at this time. Safety measures in place; call light within reach. Bed in lowest, locked position. Will continue to monitor accordingly
[2019-04-23 20:00] VITALS: BP 120/60
--- NOTE | 2019-04-23 20:15 | NUR ---
RN NOTES Patient c/o back pain and leg pain, 04/17. Requesting for norco. [place] 10-325 given as ordered. Will continue to monitor accordingly
[2019-04-23] MEDS: TAMSULOSIN 0.4 MG CAP.SR.24H PO SCH (21:01)
[2019-04-23] MEDS: QUETIAPINE FUMARATE 100 MG TABLET PO SCH (21:02)
--- NOTE | 2019-04-24 06:40 | NUR ---
RN CLOSING NOTES Patient still sleeping in bed, easily arousable. Breathing even and unlabored. Not in any distress, on room air. No complaints of pain or discomfort at this time. No acute changes overnight. All due meds given as ordered. Safety measures in place; call light within reach, bed in low, locked position. 1:1 sitter at bedside. Will endorse HALEY to oncoming RN
[2019-04-24] MEDS: PANTOPRAZOLE 40 MG TABLET.DR PO SCH (07:04)
[2019-04-24] MEDS: HYDROCODONE/APAP 10/325MG 1 EA TABLET PO PRN ×4 (07:05→20:29)
--- NOTE | 2019-04-24 07:30 | NUR ---
RN GPS NOTES PT IN BED, AWAKE, ALERT AND ORIENTED, PAIN MEDICATION GIVEN BY ULTRASOUND MANAGER NURSE, STILL WITH SOME PAIN, WANTS TO HAVE HIS ANTI ANXIETY MEDICATIONS, NOT IN DISTRESS, CALL LIGHT WITHIN REACH, SITTER AT BEDSIDE.
[2019-04-24 08:00] VITALS: BP 100/58
[2019-04-24] MEDS: NICOTINE PATCH (14MG) 14 MG PATCH.TD24 TD SCH (08:13)
[2019-04-24] MEDS: clonazePAM 0.5 MG TABLET PO SCH ×2 (08:13→17:11)
[2019-04-24] MEDS: SULFAMETH/TRIMETH 800/160 MG 1 UDTAB TABLET PO SCH ×2 (08:13→20:28)
[2019-04-24] MEDS: FLUVOXAMINE MALEATE 50 MG TABLET PO SCH ×2 (08:14→17:11)
--- NOTE | 2019-04-24 12:54 | NUR ---
RN GPS NOTES PT IN BED, ASLEEP, RESPIRATIONS NORMAL, EASY TO AROUSE, NOT IN DISTRESS, PAIN MEDS GIVEN FOR PAIN MANAGEMENT, NO BEHAVIOR PROBLEM SO FAR, SITTER AT BEDSIDE, SEEN BY DR. MERCEDES.
[2019-04-24 16:00] VITALS: BP 104/57
--- NOTE | 2019-04-24 18:08 | NUR ---
RN GPS NOTES PT IN BED, ASLEEP, EASY TO AROUSE, NOT IN PAIN OR DISTRESS, TOLERATING CURRENT DIET WELL, PM MEDS GIVEN, COMPLIANT OF THIS TIME, NO BEHAVIOR PROBLEM, SITTER AT BEDSIDE, ALL NEEDS ATTENDED.
--- NOTE | 2019-04-24 19:00 | NUR ---
GPS RN OPENING NOTES Patient resting in bed, alert, oriented x 3. Breathing even and unlabored. Not in any distress, on room air. 1:1 sitter at bedside. Safety measures in place; call light within reach, bed in low, locked position. Will continue to monitor accordingly
[2019-04-24 20:00] VITALS: BP 114/60
--- NOTE | 2019-04-24 20:30 | NUR ---
RN NOTES Patient c/o back pain, 04/17. Requesting for norco. [place] 10-325 given as ordered. Will continue to monitor accordingly
[2019-04-24] MEDS: TAMSULOSIN 0.4 MG CAP.SR.24H PO SCH (21:08)
[2019-04-24] MEDS: QUETIAPINE FUMARATE 100 MG TABLET PO SCH (21:09)
[2019-04-24] MEDS: TEMAZEPAM 7.5 MG CAPSULE PO PRN (23:13)
[2019-04-25] MEDS: HYDROCODONE/APAP 10/325MG 1 EA TABLET PO PRN ×4 (05:45→19:56)
--- NOTE | 2019-04-25 05:46 | NUR ---
RN NOTES Patient c/o back pain, 04/17. Requesting for norco. [place] 10-325 given as ordered. Will continue to monitor accordingly
--- NOTE | 2019-04-25 06:50 | NUR ---
RN CLOSING NOTES Patient still sleeping in bed, easy to arouse. Breathing even and unlabored. Not in any distress, on room air. No complaints of pain or discomfort at this time. No acute changes overnight. All due meds given as ordered. Safety measures in place; call light within reach, bed in low, locked position. 1:1 sitter at bedside. Will endorse HALEY to oncoming RN
[2019-04-25] MEDS: PANTOPRAZOLE 40 MG TABLET.DR PO SCH (07:34)
[2019-04-25] MEDS: SULFAMETH/TRIMETH 800/160 MG 1 UDTAB TABLET PO SCH ×2 (08:44→20:07)
[2019-04-25] MEDS: NICOTINE PATCH (14MG) 14 MG PATCH.TD24 TD SCH (08:44)
[2019-04-25] MEDS: FLUVOXAMINE MALEATE 50 MG TABLET PO SCH ×2 (08:44→16:07)
[2019-04-25] MEDS: clonazePAM 0.5 MG TABLET PO SCH ×2 (08:45→16:07)
[2019-04-25 19:18] VITALS: BP 104/50
--- NOTE | 2019-04-25 19:30 | NUR ---
RECEIVED PATIENT IN BED AWAKE. AO X 3, ABLE TO MAKE NEEDS KNOWN. NO ACUTE DISTRESS NOTED. MONITORED FOR PAIN. SAFETY REMINDERS GIVEN. ON LOW BED WITH BILATERAL UPPER SIDE RAILS UP. CALL BYERS WITHIN EASY REACH. SITTER AT BEDSIDE. WILL CONTINUE TO MONITOR.
[2019-04-25 20:00] VITALS: BP 104/50
[2019-04-25] MEDS: TAMSULOSIN 0.4 MG CAP.SR.24H PO SCH (21:03)
[2019-04-25] MEDS: QUETIAPINE FUMARATE 100 MG TABLET PO SCH (21:03)
[2019-04-25] MEDS: TEMAZEPAM 7.5 MG CAPSULE PO PRN (22:20)
[2019-04-26] MEDS: HYDROCODONE/APAP 10/325MG 1 EA TABLET PO PRN ×3 (05:16→15:36)
--- NOTE | 2019-04-26 06:00 | NUR ---
PATIENT ASLEEP, EASILY AROUSABLE. RESPIRATIONS EVEN. NO SIGNS OF PAIN NOTED. DUE MEDS GIVEN WITH NO ASE NOTED. NEEDS ATTENDED. SAFETY PRECAUTIONS AND COMFORT MEASURES IN PLACE. WILL GIVE REPORT TO DAY SHIFT FOR CONTINUITY OF CARE.
[2019-04-26 06:43] LABS: CALCIUM, SERUM 8.2 mg/dL (8.5-10.1); POTASSIUM 3.9 mmol/L (3.5-5.1)
[2019-04-26 06:44] LABS: BASOPHILS % (AUTO) 0.9 % (0.0-2.0); EOSINOPHILS % (AUTO) 7.5 % (0.0-6.0); HEMATOCRIT 44 % (39-51); HEMOGLOBIN 14.8 g/dL (13.5-17.5); LYMPHOCYTES % (AUTO) 38.2 % (20.0-44.0); MEAN CORPUSCULAR HGB CONC 34 g/dl (31.0-36.0); MEAN CORPUSCULAR VOLUME 93 fL (80-96); MONOCYTES # (AUTO) 0.7 /CMM (0.1-1.30); MONOCYTES % (AUTO) 13.6 % (2.0-12.0); NEUTROPHILS # (AUTO) 2.1 /CMM (1.8-8.9); NEUTROPHILS % (AUTO) 39.8 % (43.0-81.0); PLATELET COUNT (AUTO) 202 /CMM (150-450); RED BLOOD CELL COUNT(AUTO) 4.73 MIL/uL (4.5-6.0); WHITE BLOOD COUNT (AUTO) 5.2 K/uL (4.3-11.0)
[2019-04-26 06:55] LABS: THYROID STIMULATING HORMONE 1.47 uIU/mL (0.358-3.74)
[2019-04-26 08:00] VITALS: BP 100/50
[2019-04-26] MEDS: FLUVOXAMINE MALEATE 50 MG TABLET PO SCH ×2 (08:13→16:09)
[2019-04-26] MEDS: clonazePAM 0.5 MG TABLET PO SCH ×2 (08:13→16:09)
[2019-04-26] MEDS: PANTOPRAZOLE 40 MG TABLET.DR PO SCH (08:14)
[2019-04-26] MEDS: NICOTINE PATCH (14MG) 14 MG PATCH.TD24 TD SCH (08:14)
[2019-04-26] MEDS: SULFAMETH/TRIMETH 800/160 MG 1 UDTAB TABLET PO SCH ×2 (08:14→20:59)
--- NOTE | 2019-04-26 15:20 | NUR ---
GROUP NOTE: SW prompted pt to participate in group session on this present day discussing "current issues you are having while being on a hold." Pt sated he did not want to participate in group as he wanted to talk to his on the phone. Pt is withdrawn and isolative.
--- NOTE | 2019-04-26 15:51 | NUR ---
Pily ([phone]), pts , called the SW and stated that she would be willing to take the pt back home.
--- NOTE | 2019-04-26 15:51 | NUR ---
MIGUEL faxed a referral to [facility] with attention to JAYESH and Rashaun to the fax number: [phone].
[2019-04-26 19:22] VITALS: BP 107/72
--- NOTE | 2019-04-26 19:35 | NUR ---
RN GPS-OVF OPENING NOTES RECEIVED REPORT FROM DAYSHIFT XAVIER MORTENSEN. FOUND Pt AWAKE, RESTING IN BED WATCHING TV. NO S/S OF ACUTE DISTRESS OR SOB NOTED. SITTER AT BEDSIDE. Pt IS A/OX3, VERBAL, ABLE TO MAKE NEEDS KNOWN. NO IV ACCESS PER GPS PROTOCOL. Pt IS AMB WITH BRP. ON REGULAR DIET. ON ISO FOR ESBL & E.COLI OF THE URINE. SAFETY MEASURES IN PLACE. BED LOW, LOCKED, HOB ELEVATED, SIDE RAILS UP, CALL LIGHT AND BEDSIDE TABLE WITHIN REACH. WILL CONTINUE TO MONITOR Pt's CONDITION AND SAFETY THROUGHOUT THE NIGHT.
[2019-04-26 20:00] VITALS: BP 107/72
[2019-04-26] MEDS: TAMSULOSIN 0.4 MG CAP.SR.24H PO SCH (21:00)
[2019-04-26] MEDS: QUETIAPINE FUMARATE 100 MG TABLET PO SCH (21:00)
[2019-04-26] MEDS: TEMAZEPAM 7.5 MG CAPSULE PO PRN (21:46)
[2019-04-27] MEDS: HYDROCODONE/APAP 10/325MG 1 EA TABLET PO PRN ×2 (05:56→11:08)
--- NOTE | 2019-04-27 06:46 | NUR ---
RN CLOSING NOTES/GPS OVF NO SIGNIFICANT CHANGES IN Pt's CONDITION. Pt REMAINS STABLE AT THIS TIME. NO S/S OF ACUTE DISTRESS OR SOB NOTED DURING THE NIGHT. Pt IS RESTING IN BED WITH UNLABORED RESPIRATIONS, WITH EQUAL CHEST RISE AND FALL. ALL NEEDS MET AND ATTENDED TO. SAFETY MEASURES IN PLACE. SITTER AT BEDSIDE.
--- NOTE | 2019-04-27 07:30 | NUR ---
RN OPENING NOTES RECEIVED PATIENT IN BED RESTING. ABLE TO MAKE NEEDS KNOWN. NOT IN ANY FORM OF DISTRESS,. NO SOB. DENIED PAIN OR DISCOMFORT. NO IV ACCESS PER GPS PROTOCOL. SITTER AT BEDSIDE FOR SAFETY. KEPT SAFE AND COMFORTABLE. BED IN LOW/LOCKED POSITION, SIDERAILS UPX2, CALL LIGHT IN REACH. WILL CONTINUE TO MONIOTR ACCORDINGLY.
[2019-04-27 08:00] VITALS: BP 112/51
[2019-04-27] MEDS: clonazePAM 0.5 MG TABLET PO SCH ×2 (08:01→16:01)
[2019-04-27] MEDS: FLUVOXAMINE MALEATE 50 MG TABLET PO SCH ×2 (08:03→16:00)
[2019-04-27] MEDS: NICOTINE PATCH (14MG) 14 MG PATCH.TD24 TD SCH (08:03)
[2019-04-27] MEDS: SULFAMETH/TRIMETH 800/160 MG 1 UDTAB TABLET PO SCH (08:03)
[2019-04-27] MEDS: PANTOPRAZOLE 40 MG TABLET.DR PO SCH (08:03)
--- NOTE | 2019-04-27 09:35 | NUR ---
JAYESH ([phone]) from [facility] contacted the and stated that the pt was accepted to their facility.
--- NOTE | 2019-04-27 11:05 | NUR ---
MIGUEL called the pts , Pily ([phone]), and her senior speech pathologist answered and stated that she would call the SW back. Addendum: 04/27/19 at 1134 by KIERAN RIVERA Her daughter, Leah, not senior speech pathologist
--- NOTE | 2019-04-27 14:25 | NUR ---
MIGUEL called the pts , Pily ([phone]), and informed her that the pt is being discharged today and that the SW will provide a taxi voucher for the ride back to their home. MIGUEL informed her that the pt has about one month to be admitted to the SNF once he is discharged from the hospital and then informed her that there is a location in [place] as well as one in [place].
--- NOTE | 2019-04-27 14:46 | NUR ---
Pt is not homeless. Pt stated that he was because his did not want him back in their home but now the pt is returning there.
--- NOTE | 2019-04-27 15:14 | NUR ---
Discharge Note: Pt was discharged back home to [address], [address], [place] [address]; ([phone]). Pt will be transported via taxi voucher. Pt�s , Pily ([phone]), was made aware of the discharge plan. Pt was discharged at 3pm. Upon discharge, the pt appeared to be in an anxious mood and presented with a distressed affect. Pt stated that he was not certain if he was making the right decision to go home. Pt denied both suicidal and homicidal ideation as well as auditory and visual hallucinations. Pt continue to be under the care of his psychiatrist, Dr. Tyler Correa, located at [address] [place] [address]; ; fax: and his machine fur cleaner, Dr. Art Davis, located at [address] [facility] [address], [place] [address]; . Addendum: 04/27/19 at 1522 by KIERAN RIVERA MIGUEL also provided the pt with smoking cessation referrals to [employer] or [employer] [id number]. Patient was also referred to the Nicotine Anonymous meeting on [address] [facility] [address] on Saturday February 10, 2018 at 7:00 PM
--- NOTE | 2019-04-27 17:08 | NUR ---
RN NOTES DISCHARGED PATIENT IN STABLE CONDITION. NO SI/HI. DC INSTRUCTIONS GIVEN, VERBALIZED UNDERSTANDING. DC PAPERWORK AND PRESCRIPTION OF BACTRIM DS GIVEN TO PATIENT. ALL BELONGINGS RETURNED, FORM SIGNED. NO IV ACCESS PER GPS PROTOCOL. REFUSED PHOTO, PER PATIENT HE HAS NO WOUNDS. NAME BAND REMOVED. ACCOMPANIED BY SUPA BELLE TO TO TARAS ANGUIANO GIVEN.
== END 2019-04-27 16:57 | disposition home or self-care (01) | DRG 885 ==
LOC: ER 12:12 → GPSOV1 17:17 → GPS 20:08 → GPSOV 04-22 14:06
PROVIDERS: ADMIT Psychiatry & Neurology Psychosomatic Medicine; ATTEND Nurse Practitioner Acute Care
DX: F33.2 Major depressive disorder, recurrent severe without psychotic features (principal); E11.65 Type 2 diabetes mellitus with hyperglycemia; N39.0 Urinary tract infection, site not specified; F23 Brief psychotic disorder; R45.851 Suicidal ideations; F41.9 Anxiety disorder, unspecified; F19.90 Other psychoactive substance use, unspecified, uncomplicated; F11.90 Opioid use, unspecified, uncomplicated; I10 Essential (primary) hypertension; J44.9 Chronic obstructive pulmonary disease, unspecified; N40.0 Benign prostatic hyperplasia without lower urinary tract symptoms; Z59.0 Homelessness; Z91.14 Patient's other noncompliance with medication regimen; Z85.46 Personal history of malignant neoplasm of prostate; F17.210 Nicotine dependence, cigarettes, uncomplicated; F42.9 Obsessive-compulsive disorder, unspecified
CPT/HCPCS: 36415; 71045-TC; 80048-TC; 80061-TC; 80305; 81000-TC; 82565-TC; 83605-TC; 83735-TC; 83880; 84100-TC; 84439-TC; 84443-TC; 84484-TC; 85025-TC; 87081-TC; 87086-TC; 87186-TC; G0480; J2405

== ENCOUNTER 2019-05-15 10:12 | Inpatient (IN) | payer MEDICARE, MEDICAID ==
[~2019-05-15] VITALS: Ht 177.8 cm; Wt 72.6 kg
[~2019-05-15 10:12] MED LIST changes: +CELE-85 PO; +HYDR-3980 PO; +MORP30TA59 PO; +PREG150C PO; -QUET300T2 PO; +QUET400T PO; +RANI150C4 PO; -SULF1TAB48 PO; +TAMS-12 PO
--- NOTE | 2019-05-15 10:15 | NUR ---
PT [id number], HOMELESS, C/O ABD PAIN, +N/V, DIARRHEA x 2 DAYS, PT IS AAOX4, NOT IN RESPIRATORY DISTRESS, HOOKED TO MONITOR, KEPT RESTED AND COMFORTABLE, WILL CONTINUE TO MONITOR.
--- NOTE | 2019-05-15 10:20 | NUR ---
AT BEDSIDE FOR EVAL.
--- NOTE | 2019-05-15 10:23 | NUR ---
IV LINE ESTABLISHED, BLOOD DRAWNED AND SENT TO LAB.
[2019-05-15] MEDS ORDERED: ONDANSETRON HCL/PF 4 MG/2 ML VIAL ONE (10:28)
[2019-05-15] MEDS ORDERED: MORPHINE SULFATE INJ 4 MG/ML DISP.SYRIN ONE (10:29)
[2019-05-15] MEDS ORDERED: IV NS 0.9% 1,000 ML BAG IV ONE (10:30)
[2019-05-15] MEDS ORDERED: ONDANSETRON HCL/PF 4 MG/2 ML VIAL IVP ONE (10:30)
[2019-05-15] MEDS ORDERED: MORPHINE SULFATE INJ 2 MG/ML DISP.SYRIN IV ONE (10:30)
[2019-05-15 10:35] LABS: BASOPHILS % (AUTO) 0.6 % (0.0-2.0); EOSINOPHILS % (AUTO) 5.6 % (0.0-6.0); HEMATOCRIT 47 % (39-51); HEMOGLOBIN 15.5 g/dL (13.5-17.5); LYMPHOCYTES # (AUTO) 3.1 /CMM (0.8-4.8); LYMPHOCYTES % (AUTO) 48.5 % (20.0-44.0); MEAN CORPUSCULAR HGB CONC 33 g/dl (31.0-36.0); MEAN CORPUSCULAR VOLUME 94 fL (80-96); MONOCYTES # (AUTO) 0.9 /CMM (0.1-1.30); MONOCYTES % (AUTO) 13.9 % (2.0-12.0); NEUTROPHILS % (AUTO) 31.4 % (43.0-81.0); PLATELET COUNT (AUTO) 207 /CMM (150-450); RED BLOOD CELL COUNT(AUTO) 4.96 MIL/uL (4.5-6.0); WHITE BLOOD COUNT (AUTO) 6.4 K/uL (4.3-11.0)
--- NOTE | 2019-05-15 10:35 | NUR ---
URINAL GIVEN BUT UNABLE TO PROVIDE URINE SPECIMEN.
[2019-05-15 10:41] LABS: CARBON DIOXIDE 29 mmol/L (21-32); CHLORIDE 106 mmol/L (98-107); CREATININE 0.7 mg/dL (0.6-1.3); GLUCOSE 91 mg/dL (74-106); POTASSIUM 4.4 mmol/L (3.5-5.1); SODIUM SERUM 143 mmol/L (136-145); UREA NITROGEN, BLOOD 9 mg/dL (7-18)
--- NOTE | 2019-05-15 10:43 | NUR ---
PT IS WHEELED TO CT SCAN VIA [facility].
[2019-05-15 10:47] LABS: ALANINE AMINOTRANSFERASE 10 U/L (12-78); ALBUMIN 3.5 g/dL (3.4-5.0); ALKALINE PHOSPHATASE 69 U/L (46-116); ASPARTATE AMINOTRANSFERASE 12 U/L (15-37); BILIRUBIN,DIRECT 0.1 mg/dL (0.0-0.2); BILIRUBIN,TOTAL 0.3 mg/dL (0.2-1.0); LIPASE 58 U/L (73-393); TOTAL PROTEIN, SERUM 6.8 g/dL (6.4-8.2)
--- NOTE | 2019-05-15 11:18 | NUR ---
URINE SPECIMEN COLLECTED AND SENT TO LAB.
[2019-05-15 11:21] LABS: APPEARANCE,URINE Cloudy (CLEAR); BILIRUBIN,URINE Negative (NEGATIVE); BLOOD, URINE Trace-intact Ery/uL (NEGATIVE); COLOR,URINE Yellow (YELLOW); KETONES,URINE Negative (NEGATIVE); LEUKOCYTE ESTERASE ,URINE Small (NEGATIVE); NITRITE, URINE Positive (NEGATIVE); PROTEIN,URINE Negative (NEGATIVE); UGLUCOSE Negative (NEGATIVE); UROBILINOGEN,URINE 0.2 EU/dL (0.2)
[2019-05-15 11:43] LABS: RBC,URINE 0-2 /HPF (0-2)
[2019-05-15 11:44] LABS: BACTERIA,URINE Many /HPF (None Seen); WBC,URINE 15-30 /HPF (0-3)
[2019-05-15 11:45] LABS: SQUAMOUS EPITHELIAL CELL,UR Rare /HPF (None Seen)
[2019-05-15] MEDS ORDERED: CEFTRIAXONE 1GM BAG (ER ONLY) 1 GM/50 ML PIGGYBACK IV ONE (12:00)
[2019-05-15] MEDS ORDERED: CEFTRIAXONE 1GM BAG (ER ONLY) 50 ML IV ONE (12:04)
[2019-05-15] MEDS ORDERED: FLUV100T3 PO (12:35)
[2019-05-15] MEDS ORDERED: MORP15TA7 PO (12:35)
--- NOTE | 2019-05-15 12:47 | NUR ---
IRENE MERCEDES DNP AT BEDSIDE FOR EVAL.
--- NOTE | 2019-05-15 12:48 | NUR ---
[facility] BED REQUESTED
[2019-05-15] MEDS ORDERED: ACETAMINOPHEN 325 MG TABLET PO PRN (13:00)
[2019-05-15] MEDS ORDERED: MAGNESIUM HYDROXIDE 30 ML UDC PO PRN (13:00)
[2019-05-15] MEDS ORDERED: ONDANSETRON HCL/PF 4 MG/2 ML VIAL IVP PRN (13:00)
[2019-05-15] MEDS ORDERED: MAG HYDROX/AL HYDROX/SIMETH 30 ML UDC PO PRN (13:00)
--- NOTE | 2019-05-15 13:16 | NUR ---
REPORT GIVEN TO XAVIER ZAPATA FOR [facility].
[2019-05-15] MEDS ORDERED: ALBUTEROL FS 2.5 MG/0.5 ML VIAL.NEB NEB PRN (13:30)
--- NOTE | 2019-05-15 13:30 | NUR ---
MS/RN NOTES RECEIVED PATIENT FROM THE ER ACCOMPANIED BY ER NURSE. PATIENT WAS ABLE TO TRANSFER SELF TO THE BED. PATIENT IS ALERT AND ORIENTED X4. NO PAIN OR ACUTE DISTRESS AT THIS TIME. RESPIRATION EVEN AND UNLABORED. SKIN IS DRY WARM TO TOUCH. WHILE TRYING TO DO INITIAL SKIN ASSESSMENT. PATIENT REFUSED AND STATED THAT "I DONT HAVE ANY WOUNDS". PATIENT NOTED WITH LAC #18G. INTACT AND PATENT. FLUSHING WELL. NO S/S OF INFECTION OR INFILTRATION. ALL NEEDS ANTICIPATED. KEPT CLEAN AND DRY. CALL LIGHT WITHIN REACHED. SAFETY MAINTAINED. BED LOCKED AND IN LOWEST POSITION. PLAN OF CARE DISCUSSED. WILL CONTINUE TO MONITOR CLOSELY.
[2019-05-15] MEDS: NICOTINE PATCH (21MG) 21 MG PATCH.TD24 TD SCH (14:19)
[2019-05-15] MEDS: MEROPENEM 1 G in IV NS 0.9% 100 ML IV SCH (15:34)
[2019-05-15] MEDS: IV NS 0.9% 1,000 ML IV PRN (15:40)
[2019-05-15 16:14] VITALS: BP 124/78
[2019-05-15] MEDS: clonazePAM 1 MG TABLET PO SCH (17:04)
[2019-05-15] MEDS: PREGABALIN 25 MG CAPSULE PO SCH (17:12)
[2019-05-15 18:42] VITALS: BP 140/73
--- NOTE | 2019-05-15 19:00 | NUR ---
MS/RN CLOSING NOTES PATIENT CONTINUES TO REMAIN IN STABLE CONDITION THROUGHOUT THE SHIFT. PROVIDED COMFORT AND SAFETY. PATIENT ABLE TO TOLERATE MEALS AND MED WELL. PATIENT NOTED WITH LAC #18G. INTACT AND PATENT. FLUSHING WELL. NO S/S OF INFECTION OR INFILTRATION. ALL NEEDS ANTICIPATED. KEPT CLEAN AND DRY. CALL LIGHT WITHIN REACHED. SAFETY MAINTAINED. BED LOCKED AND IN LOWEST POSITION. WILL CONTINUE TO MONITOR CLOSELY. ENDORSED TO PM NURSE FOR HALEY.
--- NOTE | 2019-05-15 19:35 | NUR ---
MS RN NOTES RECEIVED ON BED ON LEFT SIDE POSITION,BREATHING NORMAL,IVF OF NS AT 100ML/HR RATE IN PROGRESS VIA IV PUMP ON LEFT AC.COMPLAINTS OF GENERALIZED PAIN DUE TO ARTHRITIS,WILL MEDICATE.CALL LIGHT IN REACH,NEEDS ANTICIPATED.
[2019-05-15] MEDS: HYDROCODONE/APAP 5/325MG 1 EACH TABLET PO PRN (19:41)
--- NOTE | 2019-05-15 19:41 | NUR ---
MS RN NOTES PAIN MANAGEMENT C/O GENERALIZED PAIN DUE TO ARTHRITIS 7/10 ON PAIN SCALE.MEDICATED WITH NORCO 5/325MG,1 TAB PO GIVEN ORDERED FOR MODERATE PAIN.
[2019-05-15 20:00] VITALS: BP 114/80
[2019-05-15] MEDS: TAMSULOSIN 0.4 MG CAP.SR.24H PO SCH (21:47)
[2019-05-15] MEDS: QUETIAPINE FUMARATE 100 MG TABLET PO SCH (21:47)
[2019-05-15] MEDS: TEMAZEPAM 15 MG CAPSULE PO PRN (21:48)
[2019-05-15] MEDS: FLUVOXAMINE MALEATE 50 MG TABLET PO SCH (21:48)
--- NOTE | 2019-05-15 21:48 | NUR ---
MS RN NOTES C/O INSOMNIA,RESTORIL 15MG,1 CAPSULE PO GIVEN
[2019-05-16] MEDS: MEROPENEM 1 G in IV NS 0.9% 100 ML IV SCH ×2 (03:04→14:44)
[2019-05-16] MEDS: IV NS 0.9% 1,000 ML IV PRN (03:11)
[2019-05-16] MEDS: HYDROCODONE/APAP 5/325MG 1 EACH TABLET PO PRN ×3 (06:27→22:18)
--- NOTE | 2019-05-16 06:27 | NUR ---
MS RN NOTES PAIN MANAGEMENT C/O GENERALIZED PAIN 6/10 ON PAIN SCALE.NORCO 5/325MG,1TAB PO GIVEN
--- NOTE | 2019-05-16 06:39 | NUR ---
MS RN NOTES SLEPT WELL WITH RESTORIL.PAIN MANAGEMENT EFFECTIVE.IVF IN PROGRESS.CALL LIGHT IN REACH,NEEDS ATTENDED.WILL ENDORSE TO DAY NURSE FOR HALEY.
[2019-05-16 06:57] LABS: BASOPHILS % (AUTO) 0.4 % (0.0-2.0); EOSINOPHILS % (AUTO) 4.7 % (0.0-6.0); HEMATOCRIT 46 % (39-51); HEMOGLOBIN 15.4 g/dL (13.5-17.5); LYMPHOCYTES # (AUTO) 1.8 /CMM (0.8-4.8); LYMPHOCYTES % (AUTO) 24.9 % (20.0-44.0); MEAN CORPUSCULAR HGB CONC 34 g/dl (31.0-36.0); MEAN CORPUSCULAR VOLUME 93 fL (80-96); MONOCYTES # (AUTO) 0.7 /CMM (0.1-1.30); MONOCYTES % (AUTO) 9.7 % (2.0-12.0); NEUTROPHILS # (AUTO) 4.5 /CMM (1.8-8.9); NEUTROPHILS % (AUTO) 60.3 % (43.0-81.0); PLATELET COUNT (AUTO) 181 /CMM (150-450); RED BLOOD CELL COUNT(AUTO) 4.92 MIL/uL (4.5-6.0); WHITE BLOOD COUNT (AUTO) 7.4 K/uL (4.3-11.0)
[2019-05-16 07:38] LABS: CALCIUM, SERUM 8.7 mg/dL (8.5-10.1); CREATININE 0.7 mg/dL (0.6-1.3); MAGNESIUM 1.8 mg/dL (1.8-2.4); PHOSPHORUS 2.7 mg/dL (2.5-4.9)
[2019-05-16 07:42] LABS: POTASSIUM 3.9 mmol/L (3.5-5.1)
[2019-05-16 08:00] VITALS: BP 118/77
--- NOTE | 2019-05-16 08:04 | NUR ---
MS RN NOTES Received Patient asleep and resting in bed. A/O x 4. VS stable with no acute distress. Breathing even and unlabored on room air with no respiratory distress. No signs and symptoms of pain at this time. 18g PIV on LAC clean, dry, intact and flushing well with NS running at 100ml/hr. Safety precautions in place. Bed locked and set to lowest position with side rails x 2 up. All needs rendered at this time. Call light within reach. Will continue to monitor.
[2019-05-16] MEDS: clonazePAM 1 MG TABLET PO SCH ×2 (08:23→16:12)
[2019-05-16] MEDS: NICOTINE PATCH (21MG) 21 MG PATCH.TD24 TD SCH (08:24)
[2019-05-16] MEDS: PREGABALIN 25 MG CAPSULE PO SCH ×2 (08:24→16:12)
[2019-05-16] MEDS: FAMOTIDINE (20 MG) 20 MG TABLET PO SCH (08:24)
[2019-05-16] MEDS: HYDROCODONE/APAP 10/325MG 1 EA TABLET PO PRN ×2 (08:25→17:15)
[2019-05-16] MEDS ORDERED: CEFTRIAXONE 1 G in IV D5W 50 ML IV SCH (09:00)
[2019-05-16 16:00] VITALS: BP_SYST 115; BP_SYST 138; BP_DIAS 72; BP_DIAS 79
--- NOTE | 2019-05-16 17:22 | NUR ---
MS RN NOTES Collected STOOL FOR C-DIFF. Noted stool is formed, soft and brown. Will discontinue STOOL FOR C-DIFF order. Patient in stable condition. All needs rendered at this time. Will continue to monitor.
--- NOTE | 2019-05-16 18:42 | NUR ---
MS RN CLOSING NOTES Patient asleep and resting in bed. A/O x 4. VS stable with no acute distress. Breathing even and unlabored on room air with no respiratory distress. Patient stated tolerable pain level of 6/10 on LOWER BACK. Administered Tate 10-325mg at 1715. Will endorse to oncoming shift. 18g PIV on LAC clean, dry, intact and flushing well. IVF not running at this time, per Patients request. Provided water and apple juice per Patients request. Safety precautions in place. Bed locked and set to lowest position with side rails x 2 up. All needs rendered at this time. Call light within reach. Will endorse plan of care to oncoming shift.
--- NOTE | 2019-05-16 19:35 | NUR ---
MS RN NOTES RECEIVED ON BED A/O C4,WATCHING TV PROGRAM.PER REPORT,PATIENT REFUSED IVF,CLAIMED HE'S DRINKING A LOT.NOTED CORRECTION OFFICER REFORMATORY THE ROOM,AC IS OFF AND PATIENT WANTS IT THAT WAY.EXPLAINED RISK AND BENEFITS FOR HAVING COOL SURROUNDING BUT STILL REFUSED TO ON THE AC.AMBULATORY.CALL LIGHT IN REACH,NEEDS ANTICIPATED.
[2019-05-16 20:04] VITALS: BP 139/82
[2019-05-16 20:13] VITALS: BP 139/82
[2019-05-16] MEDS: FLUVOXAMINE MALEATE 50 MG TABLET PO SCH (21:22)
[2019-05-16] MEDS: TEMAZEPAM 15 MG CAPSULE PO PRN (21:23)
[2019-05-16] MEDS: TAMSULOSIN 0.4 MG CAP.SR.24H PO SCH (21:23)
[2019-05-16] MEDS: QUETIAPINE FUMARATE 100 MG TABLET PO SCH (21:23)
--- NOTE | 2019-05-16 21:23 | NUR ---
MS RN NOTES ALL DUE MEDS GIVEN EARLY PER PATIENT REQUEST.
--- NOTE | 2019-05-16 21:23 | NUR ---
MS RN NOTES C/O INSOMNIA,RESTORIL 15MG PO GIVEN PER PATIENT REQUEST.
--- NOTE | 2019-05-16 22:18 | NUR ---
MS RN NOTES PAIN MANAGEMENT C/O GENERALIZED PAIN 6/10 ON PAIN SCALE.NORCO 5/325MG,1 TAB PO GIVEN.
[2019-05-17] MEDS: MEROPENEM 1 G in IV NS 0.9% 100 ML IV SCH (03:16)
--- NOTE | 2019-05-17 06:25 | NUR ---
MS RN NOTES NO SIGNIFICANT CHANGE IN STATUS.NO DIARRHEA NOTED.DRINKS A LOT OF JUICES.REFUSED IVF FLUIDS.SLEPT WELL WITH RESTORIL.IN NO ACUTE DISTRESS.WILL ENDORSE TO DAY NURSE FOR HALEY.
[2019-05-17] MEDS: HYDROCODONE/APAP 5/325MG 1 EACH TABLET PO PRN ×2 (06:39→11:41)
--- NOTE | 2019-05-17 06:39 | NUR ---
MS RN NOTES PAIN MANAGEMENT AWAKE,AMBULATE TO THE TOILET.C/O BACK PAIN 7/10 ON PAIN SCALE.MEDICATED WITH NORCO 5/325MG,1 TAB PO ORDERED
[2019-05-17 07:37] VITALS: BP 112/80
[2019-05-17 08:00] VITALS: BP 112/80
--- NOTE | 2019-05-17 08:30 | NUR ---
MS RN NOTES RECEIVED PATIENT FROM XAVIER MOORE, ALERT AND ORIENTED X4 WITH NO S/S OF DISTRESS OBSERVED. BREATHING REGULAR AND UNLABORED IN ROOM AIR. VERBALLY RESPONSIVE AND ABLE TO FOLLOW DIRECTIONS. WILL CONTINUE TO MONITOR.
[2019-05-17] MEDS: PREGABALIN 25 MG CAPSULE PO SCH (08:43)
[2019-05-17] MEDS: FAMOTIDINE (20 MG) 20 MG TABLET PO SCH (08:43)
[2019-05-17] MEDS: NICOTINE PATCH (21MG) 21 MG PATCH.TD24 TD SCH (08:44)
[2019-05-17] MEDS: clonazePAM 1 MG TABLET PO SCH (08:44)
--- NOTE | 2019-05-17 09:57 | NUR ---
Social service consult requested by Dr. Arroyo for homelessness. Pt. is a 64 year old male who was brought to [facility] for UTI. SW met with pt. bedside. Pt. is alert and oriented x 4. SW is familiar with pt. from previous admission. Pt's mood is anxious and affect guarded. Pt's thought process is linear. Pt. states he is homeless for a few days. He was living with his . Pt. has a psychiatric diagnosis of Bipolar and takes 400 mg of Seroquel. Pt. is ambulatory but uses a cane at times. Pt. has been accepted to [facility] as stated by case management assistant Laila and CJ from [facility] . Pt. is willing to go to [facility].
[2019-05-17] MEDS ORDERED: MEROPENEM 1 G in IV NS 0.9% 100 ML IV SCH (15:00)
--- NOTE | 2019-05-17 15:20 | NUR ---
OBGYN NURSE NOTE PATIENT DISCHARGED TO SNF PATIENT ALERT, ORIENTED X 4. DENIES ANY PAIN OR DISCOMFORT. DISCHARGE INSTRUCTIONS PROVIDED VERBALIZED UNDERSTANDING. DISCHARGE PROTOCOL FOLLOWED. PERIPHERAL IV REMOVED WITH MINIMAL BLEEDING. REPORT GIVEN TO HIGINIO AT [facility]. ALL BELONGINGS ACCOUNTED FOR, BELONGING LIST SIGNED. PATIENT TRANSFERRED TO [facility] VIA AMBULANCE.
== END 2019-05-17 15:20 | DRG 690 ==
LOC: ER 10:14 → MED 13:37
PROVIDERS: ADMIT Nurse Practitioner Acute Care; ATTEND Nurse Practitioner Acute Care
DX: N39.0 Urinary tract infection, site not specified (principal); F31.60 Bipolar disorder, current episode mixed, unspecified; K52.9 Noninfective gastroenteritis and colitis, unspecified; F41.9 Anxiety disorder, unspecified; E11.9 Type 2 diabetes mellitus without complications; I10 Essential (primary) hypertension; Z91.14 Patient's other noncompliance with medication regimen; Z79.899 Other long term (current) drug therapy; Z59.0 Homelessness; Z86.19 Personal history of other infectious and parasitic diseases; Z87.440 Personal history of urinary (tract) infections; F17.200 Nicotine dependence, unspecified, uncomplicated; Z98.890 Other specified postprocedural states; B96.20 Unspecified Escherichia coli [E. coli] as the cause of diseases classified elsewhere; J43.9 Emphysema, unspecified; N40.0 Benign prostatic hyperplasia without lower urinary tract symptoms; N32.0 Bladder-neck obstruction; K76.89 Other specified diseases of liver; K57.90 Diverticulosis of intestine, part unspecified, without perforation or abscess without bleeding
CPT/HCPCS: 36415; 80048-TC; 80061-TC; 80076-TC; 81000-TC; 83690-TC; 83735-TC; 84100-TC; 84484-TC; 85025-TC; 87081-TC; 87086-TC; 87186-TC; G0378; J0696; J2185; J2270; J2405; J7030; J7060

== ENCOUNTER 2019-07-01 06:26 | Inpatient (IN) | payer MEDICARE, MEDICAID ==
[~2019-07-01] VITALS: Ht 172.7 cm; Wt 74.1 kg
[~2019-07-01 06:26] MED LIST changes: +FLUV100T3 PO; +MORP15TA7 PO; -MORP30TA59 PO
--- NOTE | 2019-07-01 06:35 | NUR ---
BIB EMS C/O "I'M JUST FEELING SICK" GENERALIZED BODY PAIN. PT AAOX4 NO ACUTE DISTRESS NOTED, RESP EVEN AND UNLABORED. PENDING ER MD SHIPLEY.
[2019-07-01] MEDS ORDERED: HYDROCODONE/APAP 10/325MG 1 EA TABLET ONE (06:59)
[2019-07-01] MEDS ORDERED: HYDROCODONE/APAP 10/325MG 1 EA TABLET PO ONE (07:00)
--- NOTE | 2019-07-01 07:27 | NUR ---
REPORT GIVEN TO XAVIER ODELL FOR HALEY.
--- NOTE | 2019-07-01 08:30 | NUR ---
Social service consult requested by Dr. Leblanc for housing. Pt. is a 64 year old male who came to [facility] stating, "I don't feel well". Patient is very vague with his symptoms. MIGUEL met with the pt. bedside. Pt. is alert and oriented x 4. SW is familiar with the pt. from previous admission and ED visits. Pt. appears disheveled. Pt. has a sad affect. Pt. has his belongings bedside. Pt. states he left [facility] yesterday and wants to go back there. When asked why did he leave, pt. stated, " I made a mistake, I should have never left." Pt. has a psychiatric diagnosis of Bipolar Disorder and takes Klonopin and Seroquel. Pt. states he is depressed and would like voluntary psychiatric admission for medication management and to treat his depression. MIGUEL consulted with Lanre in intake who informed SW they will have a bed available at 10AM in [facility]. Pt. has prior history of admission in [facility] under psychiatrist Dr. Hsu. Pt. would like to be discharged to [facility] when psychiatrically cleared. MIGUEL contacted CJ at [facility] [phone] who informed SW they will accept pt. back but they have no beds as of now. MIGUEL spoke with nursing Tents Assembler Yoon who confirmed bed will be available in [facility] at 10AM. Pt. to go to [facility] voluntary. No other social service needs are requested at this time.
[2019-07-01 09:02] LABS: BASOPHILS # (AUTO) 0.1 /CMM (0.0-0.2); BASOPHILS % (AUTO) 0.6 % (0.0-2.0); EOSINOPHILS % (AUTO) 1.4 % (0.0-6.0); HEMATOCRIT 46 % (39-51); HEMOGLOBIN 15.2 g/dL (13.5-17.5); LYMPHOCYTES # (AUTO) 1.6 /CMM (0.8-4.8); LYMPHOCYTES % (AUTO) 16.4 % (20.0-44.0); MEAN CORPUSCULAR HGB CONC 33 g/dl (31.0-36.0); MEAN CORPUSCULAR VOLUME 93 fL (80-96); MONOCYTES # (AUTO) 0.9 /CMM (0.1-1.30); MONOCYTES % (AUTO) 8.9 % (2.0-12.0); NEUTROPHILS % (AUTO) 72.7 % (43.0-81.0); PLATELET COUNT (AUTO) 214 /CMM (150-450); RED BLOOD CELL COUNT(AUTO) 4.93 MIL/uL (4.5-6.0); WHITE BLOOD COUNT (AUTO) 9.6 K/uL (4.3-11.0)
[2019-07-01 09:14] LABS: CALCIUM, SERUM 9.3 mg/dL (8.5-10.1); CARBON DIOXIDE 27 mmol/L (21-32); CHLORIDE 105 mmol/L (98-107); CREATININE 0.8 mg/dL (0.6-1.3); GLUCOSE 84 mg/dL (74-106); POTASSIUM 3.7 mmol/L (3.5-5.1); SODIUM SERUM 140 mmol/L (136-145); UREA NITROGEN, BLOOD 12 mg/dL (7-18)
[2019-07-01 09:19] LABS: APPEARANCE,URINE Slightly Cloudy (CLEAR); BILIRUBIN,URINE Negative (NEGATIVE); BLOOD, URINE Trace-intact Ery/uL (NEGATIVE); COLOR,URINE Yellow (YELLOW); KETONES,URINE 40 (NEGATIVE); LEUKOCYTE ESTERASE ,URINE Large (NEGATIVE); NITRITE, URINE Positive (NEGATIVE); PROTEIN,URINE Negative (NEGATIVE); UGLUCOSE Negative (NEGATIVE)
[2019-07-01 09:20] LABS: ACETAMINOPHEN 0 ug/ml (10-30); ALANINE AMINOTRANSFERASE 10 U/L (12-78); ALBUMIN 3.6 g/dL (3.4-5.0); ALCOHOL, BLOOD < 3 mg/dL (0-0); ALKALINE PHOSPHATASE 70 U/L (46-116); ASPARTATE AMINOTRANSFERASE 11 U/L (15-37); BILIRUBIN,DIRECT 0.1 mg/dL (0.0-0.2); BILIRUBIN,TOTAL 0.7 mg/dL (0.2-1.0); SALICYLATE 3.9 mg/dL (2.8-20.0); TOTAL PROTEIN, SERUM 7.6 g/dL (6.4-8.2)
--- NOTE | 2019-07-01 09:30 | NUR ---
REQUESTED BED FROM RN PHOTOGRAPHIC PLATEMAKER.
[2019-07-01 09:35] LABS: BACTERIA,URINE 1+ /HPF (None Seen); SQUAMOUS EPITHELIAL CELL,UR Rare /HPF (None Seen)
[2019-07-01] MEDS ORDERED: CEPHALEXIN MONOHYDRATE 500 MG CAPSULE PO ONE ×2 (10:00→10:05)
--- NOTE | 2019-07-01 13:20 | NUR ---
REPORT GIVEN TO [place] FOR HALEY.
--- NOTE | 2019-07-01 14:17 | NUR ---
PATIENT TRANSFERRED TO [facility] FLOOR, PATIENT IN STABLE CONDITION.
[2019-07-01] MEDS ORDERED: BLOOD SUGAR DIAGNOSTIC 1 EACH STRIP IN ONE (15:00)
[2019-07-01] MEDS ORDERED: LORAZEPAM 0.5 MG TABLET PO PRN (15:00)
[2019-07-01] MEDS ORDERED: MAG HYDROX/AL HYDROX/SIMETH 30 ML UDC PO PRN (15:00)
[2019-07-01] MEDS ORDERED: ACETAMINOPHEN 325 MG TABLET PO PRN (15:00)
[2019-07-01] MEDS ORDERED: MAGNESIUM HYDROXIDE 30 ML UDC PO PRN (15:00)
--- NOTE | 2019-07-01 15:13 | NUR ---
DR. MCKINNEY COVERING FOR DR. LARA MADE AWARE OF THE ADMISSION AND SAID TO PUT THE STANDING ORDER OF DR. LARA.
[2019-07-01 16:00] VITALS: BP 116/82
[2019-07-01 17:20] VITALS: BP 116/82
[2019-07-01] MEDS: PREGABALIN 25 MG CAPSULE PO SCH (18:05)
--- NOTE | 2019-07-01 18:30 | NUR ---
CORPORATE INTERN NOTE: PATIENT IS A 64 YEAR OLD MALE ADMITTED TO [facility] ON A VOLUNTARY ADMISSION. CAME IN FROM HOME AND PRE[facility]. UPON FACE TO FACE ASSESSMENT, PATIENT IS ALERT X 3. VSS. NO ACUTE DISTRESS NOTED. PATIENT COMPLAINS OF PAIN TO BACK THAT IS CHRONIC. DENIES CHEST PAIN. STATES HE GETS SOB UPON MODERATE EXERTION. PATIENT IS DEPRESSED, ISOLATIVE, ANXIOUS, GARBLED SPEECH, DISHEVELED APPEARANCE, POOR CONCENTRATION. PATIENT DENIES SI/HI VAH AT THIS TIME. MED RECON COMPLETE. INFORMED DR MCKINNEY AND DR VALERA OF THE ADMISSION. PATIENT REFUSED TO SIGN CONSENTS. PATIENT HANDBOOK GIVEN WITH GUIDE TO PRESCRIPTIONS. PATIENT IS A FULL CODE WITH [facility]. AMBULATORY. PATIENT STATED THAT HE FELL 3 TIMES A FEW DAYS AGO. PT EVAL ORDERED. REFUSED SKIN CHECK. WILL CONTINUE TO MONITOR PATIENT FOR SAFETY AND BEHAVIOR Q15 MINUTES PER [facility] PROTOCOL.
[2019-07-01 20:17] VITALS: BP 119/73
[2019-07-01] MEDS: FAMOTIDINE (20 MG) 20 MG TABLET PO SCH (21:17)
[2019-07-01] MEDS: TAMSULOSIN 0.4 MG CAP.SR.24H PO SCH (21:17)
[2019-07-02 07:15] LABS: ALBUMIN 3.1 g/dL (3.4-5.0); BILIRUBIN,TOTAL 0.3 mg/dL (0.2-1.0); CALCIUM, SERUM 8.8 mg/dL (8.5-10.1); CREATININE 0.6 mg/dL (0.6-1.3); TOTAL PROTEIN, SERUM 7.1 g/dL (6.4-8.2)
[2019-07-02 07:19] LABS: CHOLESTEROL 121 mg/dL (<200); HDL CHOLESTEROL 27 mg/dL (40-60); LDL 84 mg/dL (0-99); TRIGLYCERIDES 60 mg/dL (30-150)
[2019-07-02 08:00] VITALS: BP 143/70
[2019-07-02] MEDS: PREGABALIN 25 MG CAPSULE PO SCH ×2 (08:55→16:45)
[2019-07-02] MEDS: CELECOXIB 100 MG CAPSULE PO SCH (08:55)
[2019-07-02] MEDS: FAMOTIDINE (20 MG) 20 MG TABLET PO SCH ×2 (08:56→21:35)
[2019-07-02] MEDS: MORPHINE SULFATE SR 15 MG TABLET.SA PO SCH ×2 (08:56→16:45)
--- NOTE | 2019-07-02 09:51 | NUR ---
Family Contact: SW received a voicemail from pts ex , Pily Luong ([phone]), stating that the pt has not lived with her for 7 weeks and that he needs physical therapy. She stated that the pt would like to return to [facility] and asked the SW to readmit the pt there if it is possible.
[2019-07-02] MEDS: HYDROCODONE/APAP 10/325MG 1 EA TABLET PO SCH ×3 (09:58→17:00)
--- NOTE | 2019-07-02 12:30 | NUR ---
SNF Contact: SW contacted CJ ([phone]) from [facility] regarding the pt and it was stated that the pt would be accepted back to their facility once there is a bed available.
--- NOTE | 2019-07-02 12:48 | NUR ---
Family Contact: Pily Luong ([phone]), pts ex , called the SW and stated that she wanted to make sure that the pt would be seen by a MD for his leg condition and that he will also received physical therapy. SW also informed her that she contacted CJ from [facility] who stated that the pt will be accepted back once there is a bed available.
--- NOTE | 2019-07-02 12:48 | NUR ---
Initial Discharge Plan: Pt is currently homeless. Per pt, he would like to be placed in a prison facility, specifically [facility]. SW will work with the pt and the MD regarding appropriate discharge planning. SW will form a safe and proper plan.
--- NOTE | 2019-07-02 14:09 | NUR ---
Substance Abuse Intervention: MIGUEL conducted a substance abuse intervention with the pt due to his positive toxicology for opiate and benzodiazepine.
[2019-07-02] MEDS: clonazePAM 1 MG TABLET PO SCH ×2 (14:17→17:00)
[2019-07-02] MEDS: NICOTINE PATCH (21MG) 21 MG PATCH.TD24 TD SCH (15:07)
--- NOTE | 2019-07-02 15:30 | NUR ---
Group Note: SW encouraged pt to participate in group on 07/02/19 at 2pm discussing substance abuse. Pt stated that he does not gain anything from group therapy and wanted to continue sleeping. Pt stated that his discharge is approaching and that is all that he cares about and that he already has a plan to assist with his substance use.
[2019-07-02 16:00] VITALS: BP 118/72
[2019-07-02 20:30] VITALS: BP 123/72
[2019-07-02] MEDS: TEMAZEPAM 7.5 MG CAPSULE PO PRN (21:36)
[2019-07-02] MEDS: TAMSULOSIN 0.4 MG CAP.SR.24H PO SCH (21:36)
--- NOTE | 2019-07-02 21:38 | NUR ---
ms/rn notes Patient received 1 tab of restoril for insomnia. Wll continue to monitor.
[2019-07-02] MEDS ORDERED: FLUVOXAMINE MALEATE 50 MG TABLET ONE ×2 (22:40→23:15)
[2019-07-02] MEDS: FLUVOXAMINE MALEATE 50 MG TABLET PO SCH (23:19)
[2019-07-02] MEDS: QUETIAPINE FUMARATE 100 MG TABLET PO SCH (23:20)
[2019-07-03 08:00] VITALS: BP 100/54
[2019-07-03] MEDS: FAMOTIDINE (20 MG) 20 MG TABLET PO SCH ×2 (08:13→21:12)
[2019-07-03] MEDS: CELECOXIB 100 MG CAPSULE PO SCH (08:13)
[2019-07-03] MEDS: clonazePAM 1 MG TABLET PO SCH ×2 (08:13→18:02)
[2019-07-03] MEDS: NICOTINE PATCH (21MG) 21 MG PATCH.TD24 TD SCH (08:13)
[2019-07-03] MEDS: PREGABALIN 25 MG CAPSULE PO SCH ×2 (08:14→18:01)
[2019-07-03] MEDS: MORPHINE SULFATE SR 15 MG TABLET.SA PO SCH ×2 (08:14→18:01)
[2019-07-03] MEDS: HYDROCODONE/APAP 10/325MG 1 EA TABLET PO SCH ×3 (11:36→21:12)
--- NOTE | 2019-07-03 11:37 | NUR ---
[place] 06/3525 mg given for low back pain, 8/10 pain scale, sharp and aching pain. BP 112/87. Addendum: 07/03/19 at 1139 by COLEMAN SOW RN NOrco 10/325 mg given.
[2019-07-03 16:00] VITALS: BP 107/75
--- NOTE | 2019-07-03 17:50 | NUR ---
[facility]/RN PT STATES THAT HE DOES NOT NEED NORCO AT THIS TIME. WILL ENDORSE TO TABLE ASSEMBLER TO FOLLOW UP
[2019-07-03 20:16] VITALS: BP 114/59
[2019-07-03] MEDS: FLUVOXAMINE MALEATE 50 MG TABLET PO SCH (21:12)
[2019-07-03] MEDS: TAMSULOSIN 0.4 MG CAP.SR.24H PO SCH (21:12)
[2019-07-03] MEDS: QUETIAPINE FUMARATE 100 MG TABLET PO SCH (23:08)
[2019-07-04] MEDS: TEMAZEPAM 7.5 MG CAPSULE PO PRN ×2 (01:08→21:50)
[2019-07-04 08:27] VITALS: BP 110/76
[2019-07-04] MEDS: FAMOTIDINE (20 MG) 20 MG TABLET PO SCH ×2 (08:41→20:27)
[2019-07-04] MEDS: NICOTINE PATCH (21MG) 21 MG PATCH.TD24 TD SCH (08:41)
[2019-07-04] MEDS: CELECOXIB 100 MG CAPSULE PO SCH (08:42)
[2019-07-04] MEDS: MORPHINE SULFATE SR 15 MG TABLET.SA PO SCH ×2 (08:42→17:19)
[2019-07-04] MEDS: PREGABALIN 25 MG CAPSULE PO SCH ×2 (08:42→17:19)
[2019-07-04] MEDS: clonazePAM 1 MG TABLET PO SCH ×2 (08:44→17:19)
[2019-07-04] MEDS: HYDROCODONE/APAP 10/325MG 1 EA TABLET PO SCH ×2 (09:00→12:16)
--- NOTE | 2019-07-04 09:30 | NUR ---
[facility]PS/RN PT IS EXCESSIVELY SLEEPY NO NORCO GIVEN FOR 0900.
[2019-07-04 16:24] VITALS: BP 100/68
--- NOTE | 2019-07-04 17:10 | NUR ---
[facility]/RN PT STATES THAT HE DOES NOT NEED NORCO AT THIS TIME. WILL ENDORSE TO [place] PAVING MACHINE OPERATOR TO FOLLOW UP
[2019-07-04 20:11] VITALS: BP 115/77
[2019-07-04] MEDS: TAMSULOSIN 0.4 MG CAP.SR.24H PO SCH (21:01)
[2019-07-04] MEDS: QUETIAPINE FUMARATE 100 MG TABLET PO SCH (21:02)
[2019-07-04] MEDS: FLUVOXAMINE MALEATE 50 MG TABLET PO SCH (21:02)
[2019-07-05 08:00] VITALS: BP 116/75
[2019-07-05] MEDS: clonazePAM 1 MG TABLET PO SCH ×2 (08:34→16:37)
[2019-07-05] MEDS: PREGABALIN 25 MG CAPSULE PO SCH ×2 (08:34→16:37)
[2019-07-05] MEDS: NICOTINE PATCH (21MG) 21 MG PATCH.TD24 TD SCH (08:34)
[2019-07-05] MEDS: MORPHINE SULFATE SR 15 MG TABLET.SA PO SCH ×2 (08:35→16:38)
[2019-07-05] MEDS: CELECOXIB 100 MG CAPSULE PO SCH (08:36)
[2019-07-05] MEDS: FAMOTIDINE (20 MG) 20 MG TABLET PO SCH ×2 (08:36→21:30)
[2019-07-05] MEDS: HYDROCODONE/APAP 10/325MG 1 EA TABLET PO SCH ×3 (08:36→16:39)
--- NOTE | 2019-07-05 09:36 | NUR ---
WOUND CARE CONSULT: PT PRESENTS WITH DRY ABRASION TO LEFT KNEE, PRESENT ON ADMISSION PT IS AMBULATORY AND CONTINENT. WILL SEE PRN. CURRENT VICKY SCORE IS 20.
[2019-07-05 16:00] VITALS: BP 120/65
[2019-07-05 16:47] LABS: BILIRUBIN,URINE NEGATIVE (NEGATIVE); BLOOD, URINE NEGATIVE Ery/uL (NEGATIVE); COLOR,URINE YELLOW (YELLOW); KETONES,URINE NEGATIVE (NEGATIVE); LEUKOCYTE ESTERASE ,URINE LARGE (NEGATIVE); NITRITE, URINE POSITIVE (NEGATIVE); PH,URINE 6.5 (5.0-8.0); PROTEIN,URINE NEGATIVE (NEGATIVE); UGLUCOSE NEGATIVE (NEGATIVE); UROBILINOGEN,URINE 0.2 EU/dL (0.2)
[2019-07-05 17:39] LABS: APPEARANCE,URINE SLIGHTLY CLOUDY (CLEAR); BACTERIA,URINE Many /HPF (None Seen); RBC,URINE 0-2 /HPF (0-2)
[2019-07-05 17:40] LABS: SQUAMOUS EPITHELIAL CELL,UR Rare /HPF (None Seen); WBC,URINE 21-50 /HPF (0-3)
--- NOTE | 2019-07-05 19:00 | NUR ---
RECIEVED IN BED ASLEEP WHEN NAME SPOKEN HE WOKE UP [facility] CONTACT SPEECH CLEAR PLEASENT AND SMILING. NO REQUESTS MADE
[2019-07-05 20:22] VITALS: BP 101/65
[2019-07-05] MEDS: QUETIAPINE FUMARATE 100 MG TABLET PO SCH (21:21)
[2019-07-05] MEDS: TAMSULOSIN 0.4 MG CAP.SR.24H PO SCH (22:24)
[2019-07-05] MEDS: FLUVOXAMINE MALEATE 50 MG TABLET PO SCH (22:24)
--- NOTE | 2019-07-06 05:49 | NUR ---
SLEPT THIS NIGHT 8 HOURS. NO C/O PAIN. FRIENDLY AND SMILING COOPERATICE
[2019-07-06 08:00] VITALS: BP 96/61
[2019-07-06] MEDS: FAMOTIDINE (20 MG) 20 MG TABLET PO SCH (08:13)
[2019-07-06] MEDS: PREGABALIN 25 MG CAPSULE PO SCH ×2 (08:13→17:47)
[2019-07-06] MEDS: HYDROCODONE/APAP 10/325MG 1 EA TABLET PO SCH ×3 (08:14→17:47)
[2019-07-06] MEDS: MORPHINE SULFATE SR 15 MG TABLET.SA PO SCH ×2 (08:14→17:55)
[2019-07-06] MEDS: CELECOXIB 100 MG CAPSULE PO SCH (08:14)
[2019-07-06] MEDS: NICOTINE PATCH (21MG) 21 MG PATCH.TD24 TD SCH (08:15)
[2019-07-06] MEDS: clonazePAM 1 MG TABLET PO SCH ×2 (08:15→17:47)
[2019-07-06] MEDS ORDERED: CEPHALEXIN MONOHYDRATE 500 MG CAPSULE PO SCH (09:30)
[2019-07-06 10:07] LABS: BASOPHILS % (AUTO) 0.7 % (0.0-2.0); EOSINOPHILS % (AUTO) 4.3 % (0.0-6.0); HEMATOCRIT 43 % (39-51); HEMOGLOBIN 14.1 g/dL (13.5-17.5); LYMPHOCYTES # (AUTO) 2.1 /CMM (0.8-4.8); LYMPHOCYTES % (AUTO) 28.6 % (20.0-44.0); MEAN CORPUSCULAR HGB CONC 33 g/dl (31.0-36.0); MEAN CORPUSCULAR VOLUME 92 fL (80-96); MONOCYTES % (AUTO) 13.4 % (2.0-12.0); NEUTROPHILS # (AUTO) 3.8 /CMM (1.8-8.9); PLATELET COUNT (AUTO) 255 /CMM (150-450); RED BLOOD CELL COUNT(AUTO) 4.66 MIL/uL (4.5-6.0); WHITE BLOOD COUNT (AUTO) 7.2 K/uL (4.3-11.0)
[2019-07-06 10:18] LABS: CALCIUM, SERUM 8.8 mg/dL (8.5-10.1); CREATININE 0.7 mg/dL (0.6-1.3); MAGNESIUM 1.9 mg/dL (1.8-2.4); PHOSPHORUS 3.5 mg/dL (2.5-4.9); POTASSIUM 4.2 mmol/L (3.5-5.1)
--- NOTE | 2019-07-06 10:27 | NUR ---
SNF Contact: SW contacted CJ ([phone]) from [facility] and stated that the pt will be discharged today. CJ stated that he would like notes to be faxed over and the SW faxed updated notes to [phone].
--- NOTE | 2019-07-06 10:28 | NUR ---
Family Contact: SW called Pily Luong ([phone]), pts ex , and informed her that the pt is going to be discharged to [facility] today.
--- NOTE | 2019-07-06 14:50 | NUR ---
Discharge Note: Pt was discharged to [facility] located at [address] [place] [address]; . Pt was transported via [facility] at 2PM. Pts ex , Thao ([phone]), was informed of the discharge. Upon discharge, the pt appeared to be in a euthymic mood and presented with a distressed affect. Pt stated that he was content about returning to this facility. Pt denied both suicidal and homicidal ideation as well as auditory and visual hallucinations. Pt was provided with homeless fci resources such as shelters, substance use referrals, mental health and physical health clinics. Pt will be under the care of his psychiatrist, Dr. Hsu, located at [address] [facility]. [address] [place] [address]; and his plant engineering manager, Dr. Rose, located at [address] [place] [address]; .
[2019-07-06 16:00] VITALS: BP 118/61
--- NOTE | 2019-07-06 20:01 | NUR ---
Patient picked up via ambulance with assistance of 2 persons c/o Melida (EMT). Patient is on stable condition, denies si/hi, belongings given to the patient and EMT. Patient signed the belongings list. Discharged.
--- NOTE | 2019-07-07 08:37 | NUR ---
Group Note: MIGUEL encouraged the pt to participate in group therapy on 07/05/19 at 2pm discussing discharge planning but the pt refused. He stated that he wanted to remain in bed and that he was already aware that the SW is attempting to get the pt a bed at a facility called [facility]. The pt stated that he had been there before and felt that the staff treated him well so he would like to return instead of being homeless. Addendum: 07/07/19 at 0839 by KIERAN RIVERA THIS NOTE WAS POSTED LATE.
== END 2019-07-06 20:01 | DRG 885 ==
LOC: ER 06:26 → GPS 10:51
PROVIDERS: ADMIT Psychiatry & Neurology Psychosomatic Medicine; ATTEND Nurse Practitioner Acute Care
DX: F33.2 Major depressive disorder, recurrent severe without psychotic features (principal); N39.0 Urinary tract infection, site not specified; E11.9 Type 2 diabetes mellitus without complications; I10 Essential (primary) hypertension; J44.9 Chronic obstructive pulmonary disease, unspecified; F17.200 Nicotine dependence, unspecified, uncomplicated; F42.9 Obsessive-compulsive disorder, unspecified; Z59.0 Homelessness; F41.9 Anxiety disorder, unspecified; Z91.14 Patient's other noncompliance with medication regimen; Z79.899 Other long term (current) drug therapy; M77.9 Enthesopathy, unspecified
CPT/HCPCS: 36415; 72040-TC; 80048-TC; 80053-TC; 80061-TC; 80076-TC; 80305; 81000-TC; 82962-TC; 83735-TC; 84100-TC; 85025-TC; 87081-TC; 87086-TC; 97116-TC; 97530-TC; A6403; G0480

== ENCOUNTER 2019-11-12 09:51 | Inpatient (IN) | payer MEDICARE, MEDICAID ==
[~2019-11-12] VITALS: Ht 172.7 cm; Wt 70.9 kg
--- NOTE | 2019-11-12 10:00 | NUR ---
BIBEMS FROM [place] C/O CONGESTION, GEN WEAKNESS, PER REPORT FROM THE FACILITY POSSIBLE PNEUMONIA, TO ER BED 2, HOOKED TO MONITOR, CHANGED TO HOSP GOWN, WARM BLANKET PROVIDED. PATIENT AOx 4, BREATHING EVEN AND UNLABORED. DR JOHANSNE AT BEDSIDE
[2019-11-12] MEDS ORDERED: BLOO-668 IN (10:26)
[2019-11-12] MEDS ORDERED: BACL10TA PO (10:26)
[2019-11-12] MEDS ORDERED: IPRA3AMP23 IH (10:26)
[2019-11-12] MEDS ORDERED: BISA10SU11 RC (10:26)
[2019-11-12] MEDS ORDERED: FAMO20TA8 PO (10:26)
[2019-11-12] MEDS ORDERED: ACET-868 PO (10:26)
[2019-11-12] MEDS ORDERED: FLUT1BLS IH (10:26)
[2019-11-12] MEDS ORDERED: NA P133E RC (10:26)
[2019-11-12] MEDS ORDERED: MAGN400O6 PO (10:26)
[2019-11-12] MEDS ORDERED: MORP15TA PO (10:26)
[2019-11-12] MEDS ORDERED: IV NS 0.9% 1,000 ML BAG IV ONE (11:00)
[2019-11-12 11:12] LABS: BASOPHILS % (AUTO) 0.4 % (0.0-2.0); EOSINOPHILS % (AUTO) 0.3 % (0.0-6.0); HEMATOCRIT 53 % (39-51); HEMOGLOBIN 17.4 g/dL (13.5-17.5); LYMPHOCYTES # (AUTO) 1.2 /CMM (0.8-4.8); LYMPHOCYTES % (AUTO) 9.8 % (20.0-44.0); MEAN CORPUSCULAR HGB CONC 33 g/dl (31.0-36.0); MEAN CORPUSCULAR VOLUME 89 fL (80-96); MONOCYTES # (AUTO) 0.6 /CMM (0.1-1.30); MONOCYTES % (AUTO) 4.8 % (2.0-12.0); NEUTROPHILS # (AUTO) 10.1 /CMM (1.8-8.9); NEUTROPHILS % (AUTO) 84.7 % (43.0-81.0); PLATELET COUNT (AUTO) 225 /CMM (150-450); WHITE BLOOD COUNT (AUTO) 11.9 K/uL (4.3-11.0)
[2019-11-12 11:23] LABS: CALCIUM, SERUM 9.9 mg/dL (8.5-10.1); CARBON DIOXIDE 26 mmol/L (21-32); CHLORIDE 107 mmol/L (98-107); CREATININE 0.8 mg/dL (0.6-1.3); GLUCOSE 103 mg/dL (74-106); POTASSIUM 4.2 mmol/L (3.5-5.1); SODIUM SERUM 144 mmol/L (136-145); UREA NITROGEN, BLOOD 19 mg/dL (7-18)
[2019-11-12 11:37] LABS: ALANINE AMINOTRANSFERASE 12 U/L (12-78); ALBUMIN 3.6 g/dL (3.4-5.0); ALKALINE PHOSPHATASE 90 U/L (46-116); ASPARTATE AMINOTRANSFERASE 13 U/L (15-37); BILIRUBIN,DIRECT 0.2 mg/dL (0.0-0.2); BILIRUBIN,TOTAL 0.7 mg/dL (0.2-1.0); TOTAL PROTEIN, SERUM 8.6 g/dL (6.4-8.2)
--- NOTE | 2019-11-12 12:28 | NUR ---
NAIF () FOR PT [phone].
--- NOTE | 2019-11-12 13:21 | NUR ---
PAGED EPIC TEODORO BARTH.
--- NOTE | 2019-11-12 13:34 | NUR ---
CALLED NURSING SUP FOR M/S BED.
--- NOTE | 2019-11-12 13:43 | NUR ---
NURSING SUP GAVE M/S BED 201. GIVE A FEW MINUTES BEFORE GOING UP BECAUSE THERE IS NO BED.
--- NOTE | 2019-11-12 13:52 | NUR ---
REPORT GIVEN TO ADITHYA OF MS UNIT
--- NOTE | 2019-11-12 13:57 | NUR ---
URINE SAMPLE NOT ENOUGH TO RUN TEST, ASKED THE PATIENT TO PROVIDE MORE. MD SAEZ
[2019-11-12] MEDS ORDERED: ONDANSETRON HCL/PF 4 MG/2 ML VIAL IVP PRN (14:00)
[2019-11-12] MEDS ORDERED: AZITHROMYCIN 500 MG in IV D5W 250 ML IV ONE (14:00)
[2019-11-12] MEDS ORDERED: BISACODYL SUPP (10 MG) 10 MG/SUPP.RECT SUPP.RECT RC PRN (14:00)
[2019-11-12] MEDS ORDERED: IPRATROPIUM NEB FS 0.5 MG/2.5 ML AMPUL.NEB NEB PRN (14:00)
[2019-11-12] MEDS ORDERED: Z GUARD REMEDY 2 OZ OINT TP PRN (14:00)
[2019-11-12] MEDS ORDERED: CEFTRIAXONE 1GM BAG (ER ONLY) 50 ML IV ONE ×2 (14:00→14:39)
[2019-11-12] MEDS ORDERED: INSULIN REGULAR, HUMAN 100 UNIT/ML 3 ML VIAL SQ PRN (14:00)
[2019-11-12] MEDS ORDERED: ACETAMINOPHEN 325 MG TABLET PO PRN (14:00)
[2019-11-12] MEDS ORDERED: MAG HYDROX/AL HYDROX/SIMETH 30 ML UDC PO PRN (14:00)
[2019-11-12] MEDS ORDERED: ALBUTEROL FS 2.5 MG/0.5 ML VIAL.NEB NEB PRN (14:00)
[2019-11-12] MEDS ORDERED: DEXTROSE 50%-WATER 50 ML DISP.SYRIN IV PRN (14:00)
[2019-11-12] MEDS ORDERED: HYDROCODONE/APAP 5/325MG 1 EACH TABLET PO PRN (14:00)
--- NOTE | 2019-11-12 14:15 | NUR ---
RAPID FLU SWAB SENT TO LAB
[2019-11-12] MEDS ORDERED: MAG HYDROX/AL HYDROX/SIMETH 30 ML UDC ONE (14:16)
[2019-11-12] MEDS ORDERED: MAG HYDROX/AL HYDROX/SIMETH 30 ML UDC PO ONE (14:30)
--- NOTE | 2019-11-12 14:30 | NUR ---
RECEIVED PATIENT FROM ER VIA [facility]. PATIENT ABLE TO AMBULATE TO BED FROM [facility]. PATIENT A/OX4, ABLE TO MAKE NEEDS KNOWN. NOT IN ANY FORM OF DISTRESS. NO SOB, TOLERATING ROOM AIR, SATTING 96%. DENIED PAIN OR DISCOMFORT AT THIS TIME. PER PATIENT, HE JUST HAD PNA AND VERY WEAK THAT'S WHY HE'S HERE IN THE HOSPITAL. IV ACCESS INTACT AND PATENT, WILL CONNECT TO IVF ORDERED. ANTIBIOTICS GIVEN TO ER STILL INFUSING. SITUATED PATIENT IN THE ROOM, INSTRUCTED TO USE THE CALL LIGHT FOR ANY ASSISTANCE. REFUSED SKIN ASSESSMENT, PATIENT STATED "NO! JUST WANT TO REST FOR NOW. I DONT HAVE ANY OPEN WOUNDS". BELONGINGS CHECKED AND NOTED IT IN THE FORM (PATIENT HAS ONE SILVER RING AND A SILVER NECKLACE WITH A CROSS PENDANT). KEPT PATIENT SAFE AND COMFORTABLE. BED IN LOW/LOCKED POSITION, SIDERAILS UPX2, ON SEMIFOWLERS, CALL LIGHT IN REACH. WILL MONITOR ACCORDINGLY.
[2019-11-12 14:45] VITALS: BP 145/86
[2019-11-12] MEDS: IV NS 0.9% 1,000 ML IV PRN (14:48)
[2019-11-12] MEDS: methylPREDNISolone SOD SUCC 40 MG/ML VIAL IV SCH ×2 (15:18→20:56)
[2019-11-12 16:00] VITALS: BP 158/85
[2019-11-12 16:18] VITALS: BP 158/85
--- NOTE | 2019-11-12 16:19 | NUR ---
Dr Luis Miller at bedside discussing plan of care to the patient.
--- NOTE | 2019-11-12 17:42 | NUR ---
Patient is alert, currently resides at [facility] c[facility] Address: [address], [place] [id number] . He is ambulatory and requires min assist with adl's. He dc plan is to return to SNF once discharge. Addendum: 11/12/19 at 1743 by SOCO FARRAR RN Amended: Links added.
[2019-11-12] MEDS: BACLOFEN (10 MG) 10 MG TABLET PO SCH (17:48)
[2019-11-12] MEDS: PREGABALIN 25 MG CAPSULE PO SCH (17:49)
[2019-11-12] MEDS: clonazePAM 1 MG TABLET PO SCH (17:49)
[2019-11-12] MEDS: BLOOD SUGAR DIAGNOSTIC 1 EACH STRIP IN SCH ×2 (17:50→22:00)
[2019-11-12] MEDS: MORPHINE SULFATE IR 15 MG TABLET PO SCH (17:54)
--- NOTE | 2019-11-12 19:25 | NUR ---
RN CLOSING NOTES PATIENT IN STABLE CONDITION. ALL NEEDS ATTENDED AND PROVIDED. ALL DUE MEDS GIVEN ORDERED. KEPT PATIENT SAFE AND COMFORTABLE. BED IN LOW/LOCKED POSITION, SIDERAILS UPX2, CALL LIGHT IN REACH. ENDORSED ACCORDINGLY.
--- NOTE | 2019-11-12 19:38 | NUR ---
RECEIVED PT IN BED A/O X 3 RESTING STABLE AND NOT IN DISTRESS.SAFETY MEASURES AT ALL TIMES. WILL CONT TO MONITOR.
[2019-11-12 20:00] VITALS: BP 125/67
[2019-11-12] MEDS: QUETIAPINE FUMARATE 100 MG TABLET PO SCH (21:21)
[2019-11-12] MEDS: TAMSULOSIN 0.4 MG CAP.SR.24H PO SCH (21:22)
[2019-11-12] MEDS: ZOLPIDEM TARTRATE 5 MG TABLET PO PRN (21:22)
[2019-11-12] MEDS ORDERED: MAGNESIUM HYDROXIDE 30 ML UDC PO PRN (22:00)
--- NOTE | 2019-11-12 22:00 | NUR ---
MS RN PATIENT REFUSED ACCUCHECK TO BE TAKEN DESPITE EXPLAINING RISKS AND BENEFITS PT VERBALIZED "NO BLOOD SUGAR MY BLOOD SUGAR IS FINE". OFFERED 3 TIMES PT REFUSED
[2019-11-13] MEDS: IV NS 0.9% 1,000 ML IV PRN ×2 (05:04→20:22)
[2019-11-13] MEDS: methylPREDNISolone SOD SUCC 40 MG/ML VIAL IV SCH ×3 (05:07→20:21)
--- NOTE | 2019-11-13 06:11 | NUR ---
NO SIGNIFICANT CHANGES, PT SLEPT WELL. ALL NEEDS ATTENDED AND ANTICIPATED, KEPT CLEAN, DRY AND COMFORTABLE. AM CARE RENDERED, HAD SOFT BROWN 1 BOWEL MOVEMENT. MONITORED FOR PAIN. SAFETY MEASURES AT ALL TIMES. WILL ENDORSE TO NEXT SHIFT.
[2019-11-13] MEDS: BLOOD SUGAR DIAGNOSTIC 1 EACH STRIP IN SCH ×4 (06:56→22:00)
--- NOTE | 2019-11-13 06:57 | NUR ---
MS RN PATIENT REFUSED AM ACCUCHECK DESPITE EXPLAINING RISKS AND BENEFITS PT VERBALIZED "NO BLOOD SUGAR IM FINE". OFFERED 3 TIMES PT REFUSED
--- NOTE | 2019-11-13 06:58 | NUR ---
MS RN PT REFUSED TO GIVE URINE SAMPLE AT THIS TIME. PT VERBALIZED "I URINATE WITH MY BOWEL MOVEMENT I WILL GIVE IT LATER" WILL ENDORSE.
[2019-11-13 07:00] VITALS: BP 129/94
--- NOTE | 2019-11-13 07:15 | NUR ---
RN OPENING NOTES RECEIVED PATIENT IN BED RESTING. A/OX 3, ABLE TO MAKE NEEDS KNOWN. NOT IN ANY FORM OF DISTRESS. NO SOB. DENIED PAIN OR DISCOMFORT AT THIS TIME. IV ACCESS INTACT AND PATENT. KEPT PATIENT SAFE AND COMFORTABLE. BED IN LOW/LOCKED POSITION, SIDERAILS UPX2, CALL LIGHT IN REACH. WILL MONITOR ACCORDINGLY.
[2019-11-13 07:20] LABS: BASOPHILS % (AUTO) 0.2 % (0.0-2.0); HEMATOCRIT 48 % (39-51); HEMOGLOBIN 15.7 g/dL (13.5-17.5); LYMPHOCYTES # (AUTO) 0.9 /CMM (0.8-4.8); LYMPHOCYTES % (AUTO) 18.1 % (20.0-44.0); MEAN CORPUSCULAR HGB CONC 33 g/dl (31.0-36.0); MEAN CORPUSCULAR VOLUME 88 fL (80-96); MONOCYTES # (AUTO) 0.1 /CMM (0.1-1.30); MONOCYTES % (AUTO) 2.6 % (2.0-12.0); NEUTROPHILS # (AUTO) 4.1 /CMM (1.8-8.9); NEUTROPHILS % (AUTO) 79.1 % (43.0-81.0); PLATELET COUNT (AUTO) 201 /CMM (150-450); RED BLOOD CELL COUNT(AUTO) 5.41 MIL/uL (4.5-6.0); WHITE BLOOD COUNT (AUTO) 5.1 K/uL (4.3-11.0)
[2019-11-13 07:35] LABS: CALCIUM, SERUM 9.3 mg/dL (8.5-10.1); CREATININE 0.6 mg/dL (0.6-1.3); MAGNESIUM 2.3 mg/dL (1.8-2.4); PHOSPHORUS 2.8 mg/dL (2.5-4.9); POTASSIUM 4.1 mmol/L (3.5-5.1)
[2019-11-13 07:55] LABS: THYROID STIMULATING HORMONE 0.073 uIU/mL (0.358-3.74)
[2019-11-13] MEDS: PANTOPRAZOLE 40 MG TABLET.DR PO SCH (08:20)
[2019-11-13] MEDS: BACLOFEN (10 MG) 10 MG TABLET PO SCH ×2 (08:20→16:32)
[2019-11-13] MEDS: PREGABALIN 25 MG CAPSULE PO SCH ×2 (08:21→16:30)
[2019-11-13] MEDS: MORPHINE SULFATE IR 15 MG TABLET PO SCH ×2 (08:24→16:30)
--- NOTE | 2019-11-13 09:00 | NUR ---
RN NOTES WHILE ASSISTING PATIENT COMING FROM THE RESTROOM TO THE BED, PATIENT GOT OFF-BALANCE AT THE SIDE OF THE BED BUT PRIMARY NURSE CAUGHT THE PATIENT AND ASSISTED THE FALL, ON KNEELING POSITION. ASKED PATIENT IF OK, PATIENT STATED "I'M OK". PATIENT WAS ABLE TO GET UP WITH ASSISTANCE AND WENT TO BED. ASKED PATIENT IF HE IS HURT, PATIENT STATED THAT HIS RIGHT KNEE AND LEFT ELBOW HURTS A LITTLE BIT. NOTIFIED DR VASQUEZ AND XRAY OF LEFT ELBOW AND RIGHT KNEE ORDERED. Addendum: 11/13/19 at 1009 by ADITHYA OLIVEROS XRAY LEFT KNEE ALSO ORDERED
[2019-11-13] MEDS: clonazePAM 1 MG TABLET PO SCH ×2 (09:33→17:47)
[2019-11-13] MEDS: HYDROCODONE/APAP 10/325MG 1 EA TABLET PO PRN ×2 (13:33→21:11)
[2019-11-13] MEDS: CEFTRIAXONE 1 G in IV D5W 50 ML IV SCH (14:22)
[2019-11-13] MEDS: AZITHROMYCIN 500 MG in IV D5W 250 ML IV SCH (15:32)
[2019-11-13 16:00] VITALS: BP 111/80
--- NOTE | 2019-11-13 17:53 | NUR ---
RN NOTES PATIENT REFUSED PM ACCUCHECK DESPITE EXPLAINING RISKS AND BENEFITS. PATIENT VERBALIZED "NO! IM NOT DIABETIC". OFFERED 3 TIMES PATIENT STILL REFUSED
--- NOTE | 2019-11-13 19:17 | NUR ---
RECEIVED PT IN BED A/O X 3, WATCHING TV, RESPIRATIONS EVEN AND UNLABORED. STABLE AND NOT IN DISTRESS.SAFETY MEASURES AT ALL TIMES. WILL CONT TO MONITOR.
[2019-11-13] MEDS: ZOLPIDEM TARTRATE 5 MG TABLET PO PRN (19:52)
[2019-11-13 20:00] VITALS: BP 110/73
[2019-11-13] MEDS: TAMSULOSIN 0.4 MG CAP.SR.24H PO SCH (21:05)
[2019-11-13] MEDS: QUETIAPINE FUMARATE 100 MG TABLET PO SCH (21:05)
--- NOTE | 2019-11-13 22:30 | NUR ---
MS RN PATIENT REFUSED HS ACCUCHECK TO BE TAKEN DESPITE EXPLAINING RISKS AND BENEFITS PT VERBALIZED "IM NOT DIABETIC PLEASE STOP THIS". OFFERED 3 TIMES PT REFUSED.
[2019-11-14] MEDS: methylPREDNISolone SOD SUCC 40 MG/ML VIAL IV SCH ×3 (05:26→21:16)
--- NOTE | 2019-11-14 06:08 | NUR ---
NO ACUTE EVENTS THROUGHOUT THE NIGHT. PT SLEPT WELL, STABLE AND NOT IN DISTRESS, AM CARE RENDERED. NEEDS ATTENDED AND ANTICIPATED, KEPT CLEAN, DRY AND COMFORTABLE. NO C/O OF PAIN, SAFETY MEASURES AT ALL TIMES. WILL ENDORSE TO NEXT SHIFT.
[2019-11-14] MEDS: BLOOD SUGAR DIAGNOSTIC 1 EACH STRIP IN SCH ×4 (06:34→21:31)
--- NOTE | 2019-11-14 06:34 | NUR ---
REFUSED AM ACCUCHECK DESPITE EXPLAINING RISKS AND BENEFITS PT VERBALIZED "NO I AM NOT DIABETIC PLEASE STOP THIS AGAIN". PT IRRITATED OFFERED 3 TIMES PT REFUSED.
--- NOTE | 2019-11-14 07:20 | NUR ---
MS RN NOTES RECEIVED PATIENT IN BED ASLEEP. AROUSABLE TO VERBAL AND TACTILE STIMULI. NO SOB. HOB ELEVATED. RFA # 22 INTACT AND PATENT. PATIENT REFUSED TO BE CONNECTED TO THE IVF ORDERED. BED IN LOWEST POSITION, LOCKED. BED ALARM ON. CALL LIGHT WITHIN REACH.
[2019-11-14] MEDS: PANTOPRAZOLE 40 MG TABLET.DR PO SCH (07:30)
[2019-11-14 08:00] VITALS: BP 107/71
--- NOTE | 2019-11-14 08:30 | NUR ---
MS RN NOTES PATIENT UPSET AND THREW BREAKFAST TRAY AND WATER PITCHER ON THE FLOOR. PATIENT STATED IT'S BECAUSE HE DIDN'T GET ANY PANCAKES. DIETARY STAFF SPOKE TO PATIENT REGARDING CURRENT DIET, PATIENT CONTINUED TO YELL AT STAFF.
[2019-11-14] MEDS: BACLOFEN (10 MG) 10 MG TABLET PO SCH ×2 (08:39→16:15)
[2019-11-14] MEDS: clonazePAM 1 MG TABLET PO SCH ×2 (08:40→16:14)
[2019-11-14] MEDS: MORPHINE SULFATE IR 15 MG TABLET PO SCH ×2 (08:40→16:15)
[2019-11-14] MEDS: PREGABALIN 25 MG CAPSULE PO SCH ×2 (09:53→16:14)
[2019-11-14] MEDS: HYDROCODONE/APAP 10/325MG 1 EA TABLET PO PRN (11:32)
--- NOTE | 2019-11-14 11:37 | NUR ---
MS RN NOTES UPON ENTERING THE ROOM, OBSERVED PATIENT THROWING SEVERAL JUICE CONTAINER ON THE FLOOR. PATIENT STATED, "I DIDN'T THREW IT ON THE FLOOR, IT FELL."
--- NOTE | 2019-11-14 11:39 | NUR ---
MS RN NOTES PATIENT REFUSED BLOOD SUGAR CHECK DESPITE EXPLANATIONS OF RISKS AND BENEFITS, PATIENT STRONGLY REFUSED AND STATED, "I'M NOT DIABETIC, WHILE USING FOUL LANGUAGE IN BETWEEN STATEMENTS."
[2019-11-14] MEDS: CEFTRIAXONE 1 G in IV D5W 50 ML IV SCH (13:16)
[2019-11-14] MEDS: IV NS 0.9% 1,000 ML IV PRN (13:16)
[2019-11-14] MEDS: AZITHROMYCIN 500 MG in IV D5W 250 ML IV SCH (15:58)
[2019-11-14 16:00] VITALS: BP 121/71
--- NOTE | 2019-11-14 18:58 | NUR ---
MS RN NOTES PATIENT RESTING COMFORTABLY IN BED WATCHING TV. NO S/S OF RESPIRATORY DISTRESS. HOB ELEVATED. AMBULATED AROUND UNIT HALLWAY WITH STEADY GAIT. RFA # 22 INTACT AND PATENT INFUSING NS @ 75 ML/HR KAL WELL. BED IN LOWEST POSITION, LOCKED. BED ALARM ON. CALL LIGHT WITHIN REACH. ABLE TO VERBALIZE NEEDS. IN NO APPARENT DISTRESS.
--- NOTE | 2019-11-14 19:00 | NUR ---
RN medsurg opening notes Received Pt from morning nurse. Pt is laying in bed comfortably watching TV. Pt is alert and orientedX4. Respiration is normal in room air. No SOB. No S/S of distress noted. IV sites RFA#22 is clean, intact, patent and SL. Pt refused to have IV fluid. Made aware risks and benefits. Safety precautions is maintained. Bed at low position, brakes locked, side rails upX2 and call light is within reach. Will continue to monitor.
[2019-11-14] MEDS ORDERED: ALBUTEROL FS 2.5 MG/0.5 ML VIAL.NEB NEB PRN (19:30)
[2019-11-14 20:00] VITALS: BP 122/83
[2019-11-14 20:23] VITALS: BP 122/83
[2019-11-14] MEDS: TAMSULOSIN 0.4 MG CAP.SR.24H PO SCH (21:16)
[2019-11-14] MEDS: QUETIAPINE FUMARATE 100 MG TABLET PO SCH (21:16)
--- NOTE | 2019-11-14 21:32 | NUR ---
XAVIER medsurg notes Pt refused to have blood sugar check. Offered multiple times. Made aware risks and benefits. Pt keep refusing. Will continue to monitor.
[2019-11-14] MEDS: ZOLPIDEM TARTRATE 5 MG TABLET PO PRN (23:05)
--- NOTE | 2019-11-14 23:09 | NUR ---
RN medsurg notes Pt is having problem falling a sleep and requesting sleeping pill. Administered ambien 5 mg/1 tab/po as ordered for sleeping. Safety precautions is maintained. Will continue to monitor.
[2019-11-15] MEDS: methylPREDNISolone SOD SUCC 40 MG/ML VIAL IV SCH ×2 (05:23→12:21)
[2019-11-15] MEDS: BLOOD SUGAR DIAGNOSTIC 1 EACH STRIP IN SCH ×3 (06:31→12:00)
--- NOTE | 2019-11-15 06:33 | NUR ---
RN medsur notes Pt refused to have blood sugar check. Offered multiple times. Pt stated "No!! I'm not diabetic!" Made aware risk and benefits. Will continue to monitor.
--- NOTE | 2019-11-15 06:45 | NUR ---
RN medsurg closing notes Pt is resting in bed comfortably. Pt is alert and orientedX4. Respiration is normal. No SOB. No S/s of distress noted. IV sites at RFA# 22 is clean, intact, patent and SL. Pt keep refusing IV fluid and blood sugar check. Routine meds were given as ordered. Kept Pt clean, dry and comfortable. All needs met and attended. Safety precautions is maintained. Bed at low position, brakes locked, side railsupX2 and call light is within reach. Will endorse to morning nurse for HALEY.
--- NOTE | 2019-11-15 07:15 | NUR ---
MS RN NOTES RECEIVED PATIENT IN BED WATCHING TV. NO SOB. HOB ELEVATED. RFA # 22 INTACT AND PATENT. PATIENT STILL REFUSED TO BE CONNECTED TO THE IVF ORDERED DESPITE OF EXPLANATIONS OF RISKS AND BENEFITS AND EDUCATIONS PROVIDED. BED IN LOWEST POSITION, LOCKED. BED ALARM ON. CALL LIGHT WITHIN REACH. BED SIDERAILS UP X2.
[2019-11-15] MEDS: clonazePAM 1 MG TABLET PO SCH (08:15)
[2019-11-15] MEDS: MORPHINE SULFATE IR 15 MG TABLET PO SCH (08:15)
[2019-11-15] MEDS: PANTOPRAZOLE 40 MG TABLET.DR PO SCH (08:15)
[2019-11-15] MEDS: BACLOFEN (10 MG) 10 MG TABLET PO SCH (08:15)
[2019-11-15] MEDS: PREGABALIN 25 MG CAPSULE PO SCH (08:16)
[2019-11-15] MEDS ORDERED: FLUTICASONE/VILANTEROL 1 EACH BLST.W.DEV IH SCH (09:00)
[2019-11-15] MEDS: HYDROCODONE/APAP 10/325MG 1 EA TABLET PO PRN (09:25)
--- NOTE | 2019-11-15 13:25 | NUR ---
MS RN NOTES PATIENT STARTED WALKING DOWN THE UNIT HALLWAY AND STATED, "I'M GOING TO SMOKE." RAN AFTER THE PATIENT AND EXPLAINED RISK AND BENEFITS OF SMOKING, PATIENT VERBALIZES UNDERSTANDING AND SIGNED SMOKING CONSENT FORM. PATIENT ACCOMPANIED BY STAFF TO SMOKING AREA.
[2019-11-15] MEDS: CEFTRIAXONE 1 G in IV D5W 50 ML IV SCH (14:00)
--- NOTE | 2019-11-15 14:38 | NUR ---
MS RN NOTES PATIENT FOR DISCHARGE. NO S/S OF RESPIRATORY DISTRESS. SPO2 ROOM AIR 98%. AMBULATING IN UNIT HALLWAY WITH STEADY GAIT. IV ACCESS REMOVED WITH CATHETER TIP INTACT. DENIES ANY C/O PAIN NOR DISCOMFORT AT THIS TIME. CALLED [facility] . CALLED AND SPOKE TO XAVIER MOHAN AND REPORT GIVEN. DISCHARGE EDUCATIONS AND INSTRUCTIONS GIVEN TO XAVIER MOHAN VERBALLY. DISCHARGE PACKET GIVEN TO EMT. ALL BELONGINGS ACCOUNTED FOR. PATIENT LEFT VIA GURNEY ACCOMPANIED BY 2 EMT IN STABLE CONDITION.
== END 2019-11-15 14:38 | DRG 202 ==
LOC: ER 09:57 → TELE2 14:18 → MEDSG2 14:53
DX: J20.9 Acute bronchitis, unspecified (principal); J44.0 Chronic obstructive pulmonary disease with (acute) lower respiratory infection; E11.9 Type 2 diabetes mellitus without complications; Z59.0 Homelessness; I10 Essential (primary) hypertension; F41.9 Anxiety disorder, unspecified; F32.9 Major depressive disorder, single episode, unspecified; Z91.14 Patient's other noncompliance with medication regimen; Z79.51 Long term (current) use of inhaled steroids; Z79.899 Other long term (current) drug therapy; Z79.891 Long term (current) use of opiate analgesic; F17.200 Nicotine dependence, unspecified, uncomplicated; Z98.890 Other specified postprocedural states; M46.00 Spinal enthesopathy, site unspecified; I70.0 Atherosclerosis of aorta
CPT/HCPCS: 36415; 71045-TC; 73080-TC; 73564-TC; 80048-TC; 80061-TC; 80076-TC; 82962-TC; 83605-TC; 83735-TC; 84100-TC; 84443-TC; 84484-TC; 85025-TC; 85730-TC; 87040-TC; 87081-TC; 87086-TC; G0378; J0456; J0696; J1815; J2920; J7030; J7060

== ENCOUNTER 2021-03-16 12:01 | Emergency (ER) | payer MEDICARE, OTHER ==
[~2021-03-16] VITALS: Ht 175.3 cm; Wt 68.0 kg
[~2021-03-16 12:01] MED LIST changes: +ACET-868 PO; +BACL10TA PO; +BISA10SU11 RC; +BLOO-668 IN; +FAMO20TA8 PO; +FLUT1BLS IH; +IPRA3AMP23 IH; +MAGN400O6 PO; +MORP15TA PO; -MORP15TA7 PO; +NA P133E RC; -RANI150C4 PO
--- NOTE | 2021-03-16 12:10 | NUR ---
BIBA 860 From Home "Been having Pain/tingly on both legs" Patient a/ox4, breathing even and unlabored, kept comfortable in bed.
--- NOTE | 2021-03-16 12:52 | NUR ---
patient refused IV fluids, explained risks and benefits still refused. Dr. Huff made aware.
[2021-03-16] MEDS: IV NS 0.9% 1,000 ML IV ONE (12:53)
[2021-03-16 13:09] LABS: BASOPHILS % (AUTO) 0.5 % (0.0-2.0); EOSINOPHILS % (AUTO) 2.1 % (0.0-6.0); HEMATOCRIT 43 % (39-51); HEMOGLOBIN 14.3 g/dL (13.5-17.5); LYMPHOCYTES # (AUTO) 2.3 K/uL (0.8-4.8); LYMPHOCYTES % (AUTO) 29.7 % (20.0-44.0); MEAN CORPUSCULAR HGB CONC 34 g/dl (31.0-36.0); MEAN CORPUSCULAR VOLUME 93 fL (80-96); MONOCYTES # (AUTO) 0.7 K/uL (0.1-1.30); MONOCYTES % (AUTO) 9.3 % (2.0-12.0); NEUTROPHILS # (AUTO) 4.5 K/uL (1.8-8.9); NEUTROPHILS % (AUTO) 58.4 % (43.0-81.0); PLATELET COUNT (AUTO) 277 K/uL (150-450); RED BLOOD CELL COUNT(AUTO) 4.59 MIL/uL (4.5-6.0); WHITE BLOOD COUNT (AUTO) 7.6 K/uL (4.3-11.0)
[2021-03-16 13:16] LABS: CALCIUM, SERUM 8.6 mg/dL (8.5-10.1); CREATININE 0.6 mg/dL (0.6-1.3); POTASSIUM 3.6 mmol/L (3.5-5.1)
[2021-03-16 13:22] LABS: ALBUMIN 3.7 g/dL (3.4-5.0); BILIRUBIN,TOTAL 0.4 mg/dL (0.2-1.0); TOTAL PROTEIN, SERUM 6.7 g/dL (6.4-8.2)
[2021-03-16] MEDS ORDERED: CELE-85 PO (15:12)
[2021-03-16] MEDS ORDERED: POLY17PO4 PO (15:12)
[2021-03-16] MEDS: KETOROLAC TROMETHAMINE INJ 30 MG/ML VIAL IM ONE (15:29)
--- NOTE | 2021-03-16 15:30 | NUR ---
PATIENT REFUSES THE TORADOL. HE STATED IT DOESNT LAST LONG, EXPLAINED RISKS AND EBENFITS. CALLED MARKET SURVEY REPRESENTATIVE FOR CONSULT RE: HOMELESSNESS.
--- NOTE | 2021-03-16 15:45 | NUR ---
INSURANCE AGENCY MANAGER IVIS AT BEDSIDE FOR CONSULT.
--- NOTE | 2021-03-16 16:07 | NUR ---
Nutrition Worker consult: rn women services consult requested for homelessness. Patient is a 66-year-old, male. MIGUEL met with patient at his bedside in the emergency department. Patient presented irritable and repeatedly stated, "I want a hot meal and to spend the night here." Patient appeared well-groomed. Per chart, patient was brought in by ambulance on 03/16/21 for foot pain. Patient reported that he is currently homeless. Patient reported that he does not want to continue to live on the streets and stated, "I'm afraid of MS 13, I don't belong on the streets, that's not my lifestyle." Patient reported that he has been homeless for the last couple of weeks. Patient staed Addendum: 03/16/21 at 1614 by IVIS RIVERA CONTINUED... Patient stated that he currently receives SSDI. Patient has a history of substance use which includes cigarette use, "31/03." Patient stated that he has a history of paranoid Schizophrenia. Patient stated that he is constantly paranoid and is not currently taking psychiatric medication. Patient denied suicidal or homicidal ideation. MIGUEL offered the patient homeless, substance use and outpatient mental health resources. Patient declined the resources and stated, "I don't want them." Patient signed the homeless waiver and MIGUEL filed the waiver in the patient's chart. Patient stated he will return to the street at the time of discharge. PLAN: Patient will return to his prior living arrangement on the street. No further SS intervention at this time, however, SW will remain available as needed. Year-round shelters: [facility] [address] [place] [place] [address] ; [facility] [place] [address] [place] [address]; [facility] [id number] [facility] [address] SPA 4 | [facility] Recreation [place] Provider: First to Serve Address: [address], [address] # of Beds: 48 Population Served: [facility] Provider: First to Serve Address: 7[address] [facility], [address] # of Beds: 73 Population Served: [facility] 6 | [facility] Provider: Home at Last Address: [address] [facility], [address] # of Beds: 63 Population Served: [facility] 3 | [facility] Provider: [facility] [place] Address: [address] [place], [place] [id number] # of Beds: 75 Population Served: [facility] 8 | [facility] Provider: [facility] [place] Address: [address] [facility], [address] # of Beds: 80 Population Served: [facility] 1 | [facility] Provider: [place] [facility] [place] Address: [address] [facility], [address] # of Beds: 85 Population Served: [facility] 2 | [place] Provider: Bianca [facility] Address: Confidential (please call for location) # of Beds: 52 Population Served: [facility] 4 | [facility] Provider: Constance [facility] Address: [address] [facility], [address] # of Beds: 49 Population Served: [facility] Provider: First To Serve Address: 313 [facility], [address] # of Beds: 27 Population Served: Coed Hygiene: [facility]: [address]. [place] ; [facility] [address] [facility] ; [facility] [address] [place] . Food Resources: [place] [facility] at [facility]- [address] [place]; Meet Each Need with Dignity ([facility]) [address] [facility]; [facility] Food Pantry 9193 [facility]; [facility] 2773 [facility]. Mental Health resources provided: [facility] [address] [place], [place] [phone] ; [facility] Mental Health [place] [address] [facility] [address], [place] [address] ; [facility] [address] [facility] [place] [address] ; [facility] [address] [place], [place] [phone] Healthcare Clinics: [facility] 655[address] [facility], [address] [place]. [place] ; [facility] [address] [facility] [address] [place] [address]; [facility] [address] [facility] [place]. [place] [phone] Counseling--Outpatient [facility] [address] [facility], [place] [address] (Specializes in in-depth psychotherapy for emotional distress: anxiety, depression, interpersonal conflicts, life transitions, childhood abuse) PSYCHIATRIC OUTPATIENT SERVICES [facility] Partial Hospitalization and Intensive Outpatient Program (Managed Care and [place] Only) [address] [facility] [id number] [facility] Partial Hospitalization and Outpatient Program [address] [place] [address] [facility] Partial Hospitalization and Outpatient Program [address] [facility] [place] [address] [facility] [address] [address]eth[address] [facility]. [address] [place] [address] [facility] Partial Hospitalization and Outpatient Program [address] [address] [place], [place] [phone] Substance use resources provided included: [facility] Substance Abuse Self-Helpline (SAS) ; [facility] [address] [facility]. [place] [id number] ; [facility] [address] [facility] [address] ; [facility] 400 [facility] [phone] ; [facility] 4940 [facility] [address] ; [facility] 909 [facility] [phone] ; [facility] [place]; [facility] [place]; [place] [facility]; Alcoholics Anonymous -SFV
--- NOTE | 2021-03-16 16:11 | NUR ---
Patient a/ox4, ambulatory with steady gait. No distress noted. Patient given written and verbal discharge instructions. Patient verbalizes understanding of instructions. Patient is ambulatory with steady gait. Refuses offer of m[facility] placement. Patient given list of available shelters in surrounding area.
[2021-03-16 16:12] VITALS: BP 126/70
== END 2021-03-16 16:13 | disposition home or self-care (01) ==
LOC: ER 12:03
DX: G89.29 Other chronic pain (principal); K59.00 Constipation, unspecified; R20.2 Paresthesia of skin; I10 Essential (primary) hypertension; E11.9 Type 2 diabetes mellitus without complications; F32.9 Major depressive disorder, single episode, unspecified; F41.9 Anxiety disorder, unspecified; Z60.2 Problems related to living alone; Z79.899 Other long term (current) drug therapy
CPT/HCPCS: 36415; 71045; 80053; 85025; 93005; 99285; J7030

== ENCOUNTER 2021-03-16 17:39 | Emergency (ER) | payer MEDICARE, OTHER ==
[~2021-03-16] VITALS: Ht 170.2 cm; Wt 63.5 kg
[~2021-03-16 17:39] MED LIST changes: +POLY17PO4 PO
[2021-03-16 17:55] VITALS: BP 154/94
--- NOTE | 2021-03-16 18:00 | NUR ---
ACCORDING TO URGENT CARE STAFF, PATIENT WAS OUT IN THE STREET, ALMOST FELL C/O WEAKNESS ON DOUG. LEGS, CANE PROVIDED AND HELPED PATIENT BACK TO THE HOSPITAL.
--- NOTE | 2021-03-16 18:10 | NUR ---
SPOKE TO DANIEL, STATED SHE CANNOT TAKE CARE OF THE PATIENT AND THERE'S NO OTHER FAMILY MEMBER WHO'S WILLING. PATIENT IS C/O BACK PAIN AND DOUG. LOWER LEG PAIN W/ DIFFICULTY WALKING LONG DISTANCE.
--- NOTE | 2021-03-16 18:15 | NUR ---
CALLED CENTRIFUGAL MACHINE TENDER RADHA FOR ASSISTANCE.
--- NOTE | 2021-03-16 18:20 | NUR ---
PATIENT AMBULATING WITH AN ASSISTIVE DEVICE (CANE) UNABLE TO WALK LONG DISTANCE, C/O BACK AND LOWER LEG PAIN WHEN AMBULATING. FEELS WEAK WHEN HE WALKS.
--- NOTE | 2021-03-16 18:28 | NUR ---
COVID SWAB SENT.
--- NOTE | 2021-03-16 18:30 | NUR ---
[facility]
--- NOTE | 2021-03-16 19:37 | NUR ---
FOR UPDATES CONTACT [facility] FROM [facility] [phone]
--- NOTE | 2021-03-16 19:39 | NUR ---
ER requested CM for placement. Pt referred to [facility]. CM faxed clinicals to [facility] fax # , phone # . Rosy phone # . Informed Rosy re: referral. Acceptance pending. Informed Whitney in ER that clinicals were sent, pending acceptance. Rosy contact number provided for f/u.
--- NOTE | 2021-03-16 20:35 | NUR ---
[facility] [address] [place] [address]. [place], [address]. GOING TO ROOM 209 PLEASE [phone]. ASK FOR THE RN FLOW FLOOR ATTENDANT TO GIVE REPORT.
--- NOTE | 2021-03-16 20:41 | NUR ---
[facility] CALLED FOR TRANSPORT. ETA 60 MINUTES.
--- NOTE | 2021-03-16 20:51 | NUR ---
[facility] NEW ETA 9745
--- NOTE | 2021-03-16 21:29 | NUR ---
CALLED [facility] TO ATTEMPT TO GIVE REPORT, NURSE IS CURRENTLY BUSY. WILL RECEIVE A CALLBACK FROM THE FACILITY.
--- NOTE | 2021-03-16 21:36 | NUR ---
REPORT GIVEN TO PRISCILA PARK FROM [facility].
--- NOTE | 2021-03-16 22:30 | NUR ---
[facility] AT BEDSIDE FOR TRANSPORT TO [facility].
--- NOTE | 2021-03-16 22:32 | NUR ---
report given to ambulance team for kiara. and transferring responsiblities.
== END 2021-03-16 23:55 ==
LOC: ER 23:28
DX: R06.02 Shortness of breath (principal); G89.29 Other chronic pain; Z59.0 Homelessness; Z76.5 Malingerer [conscious simulation]; Z20.822 Contact with and (suspected) exposure to COVID-19; J44.9 Chronic obstructive pulmonary disease, unspecified; I10 Essential (primary) hypertension; Z91.14 Patient's other noncompliance with medication regimen
CPT/HCPCS: C9803

== ENCOUNTER 2021-03-25 03:43 | Inpatient (IN) | payer MEDICARE, OTHER ==
[~2021-03-25] VITALS: Ht 175.3 cm; Wt 66.7 kg
--- NOTE | 2021-03-25 03:46 | NUR ---
pt bibself c/o palpitations x1 hr ago. Pt aaox4 breathing evenly and unlabored. Pt states that he had to use his rescue inhaler since he felt short of breath. Pt 97% on RA. Pt skin warm, dry, and intact. Upon assessment, pt has left wrist in velcro brace. Pt attached to monitor and pox. Pt given blanket and call light within reach
[2021-03-25] MEDS ORDERED: ALBUTEROL FS 2.5 MG/3 ML VIAL.NEB NEB ONE (04:30)
[2021-03-25] MEDS ORDERED: methylPREDNISolone SOD SUCC 125 MG/2ML VIAL IV ONE (04:30)
[2021-03-25] MEDS ORDERED: methylPREDNISolone SOD SUCC 125 MG/2ML VIAL ONE (04:32)
--- NOTE | 2021-03-25 04:45 | NUR ---
blood obtained and sent to lab
[2021-03-25 04:49] LABS: BASOPHILS % (AUTO) 0.4 % (0.0-2.0); HEMATOCRIT 41 % (39-51); HEMOGLOBIN 13.6 g/dL (13.5-17.5); LYMPHOCYTES # (AUTO) 1.7 K/uL (0.8-4.8); LYMPHOCYTES % (AUTO) 21.5 % (20.0-44.0); MEAN CORPUSCULAR HGB CONC 33 g/dl (31.0-36.0); MEAN CORPUSCULAR VOLUME 94 fL (80-96); MONOCYTES # (AUTO) 0.9 K/uL (0.1-1.30); MONOCYTES % (AUTO) 11.9 % (2.0-12.0); NEUTROPHILS % (AUTO) 64.2 % (43.0-81.0); PLATELET COUNT (AUTO) 244 K/uL (150-450); RED BLOOD CELL COUNT(AUTO) 4.34 MIL/uL (4.5-6.0); WHITE BLOOD COUNT (AUTO) 7.8 K/uL (4.3-11.0)
[2021-03-25] MEDS ORDERED: ALBUTEROL FS 2.5 MG/3 ML VIAL.NEB ONE (04:49)
[2021-03-25 05:05] LABS: CALCIUM, SERUM 8.6 mg/dL (8.5-10.1); CARBON DIOXIDE 30 mmol/L (21-32); CHLORIDE 106 mmol/L (98-107); CREATININE 0.8 mg/dL (0.6-1.3); GLUCOSE 85 mg/dL (74-106); POTASSIUM 3.8 mmol/L (3.5-5.1); SODIUM SERUM 141 mmol/L (136-145); UREA NITROGEN, BLOOD 11 mg/dL (7-18)
--- NOTE | 2021-03-25 05:05 | NUR ---
xray at bedside
[2021-03-25 05:11] LABS: ALANINE AMINOTRANSFERASE 18 U/L (12-78); ALBUMIN 3.5 g/dL (3.4-5.0); ALKALINE PHOSPHATASE 46 U/L (46-116); ASPARTATE AMINOTRANSFERASE 10 U/L (15-37); BILIRUBIN,DIRECT 0.1 mg/dL (0.0-0.2); BILIRUBIN,TOTAL 0.4 mg/dL (0.2-1.0); TOTAL PROTEIN, SERUM 6.5 g/dL (6.4-8.2)
--- NOTE | 2021-03-25 06:14 | NUR ---
MOVE SHEET TURNED IN, PAGED EPIC
--- NOTE | 2021-03-25 06:28 | NUR ---
CALLED NURSING SUP FOR TELE BED
[2021-03-25] MEDS ORDERED: MAG HYDROX/AL HYDROX/SIMETH 30 ML UDC PO PRN (06:30)
[2021-03-25] MEDS ORDERED: HYDROCODONE/APAP 5/325MG TABLET PO PRN (06:30)
[2021-03-25] MEDS ORDERED: ZOLPIDEM TARTRATE 5 MG TABLET PO PRN (06:30)
[2021-03-25] MEDS ORDERED: IV NS 0.9% 1,000 ML IV PRN (06:30)
[2021-03-25] MEDS ORDERED: ONDANSETRON HCL/PF 4 MG/2 ML VIAL IVP PRN (06:30)
[2021-03-25] MEDS ORDERED: ACETAMINOPHEN 325 MG TABLET PO PRN (06:30)
--- NOTE | 2021-03-25 06:48 | NUR ---
called lab for covid swab
[2021-03-25] MEDS ORDERED: INSULIN REGULAR, HUMAN 100 UNIT/ML 3 ML VIAL SQ PRN (07:00)
[2021-03-25] MEDS ORDERED: ALBUTEROL FS 2.5 MG/0.5 ML VIAL.NEB NEB PRN (07:00)
[2021-03-25] MEDS ORDERED: IPRATROPIUM NEB FS 0.5 MG/2.5 ML AMPUL.NEB NEB PRN (07:00)
[2021-03-25] MEDS ORDERED: DEXTROSE 50%-WATER 50 ML DISP.SYRIN IV PRN (07:00)
--- NOTE | 2021-03-25 07:04 | NUR ---
covid swab sent to lab
--- NOTE | 2021-03-25 07:22 | NUR ---
assessed pt on bed asleep easily arousable, not in respiratory distress, v/s stable, kept rested and comfortable. will continue to monitor.
[2021-03-25] MEDS: BLOOD SUGAR DIAGNOSTIC 1 EACH STRIP IN SCH ×4 (07:51→22:00)
[2021-03-25] MEDS ORDERED: HEPARIN SODIUM, PORCINE 5000 UNITS/1 ML VIAL ONE (08:08)
[2021-03-25] MEDS: HEPARIN SODIUM, PORCINE 5000 UNITS/1 ML VIAL SQ SCH ×2 (08:52→21:00)
--- NOTE | 2021-03-25 08:52 | NUR ---
PT INSISTED TO REMOVE HIS IV HEPLOCK EVEN MULTIPLE ATTEMPT TO EXPLAIN THE NEED FOR IT.
--- NOTE | 2021-03-25 10:22 | NUR ---
PT REFUSED BLOOD DRAW.
[2021-03-25] MEDS ORDERED: LORA-259 PO (11:21)
[2021-03-25] MEDS ORDERED: POLY17PO4 PO (11:21)
--- NOTE | 2021-03-25 11:35 | NUR ---
patent is accepted at [facility] number for report [phone].
--- NOTE | 2021-03-25 12:23 | NUR ---
PT REFUSED ACCU CHECK.
--- NOTE | 2021-03-25 14:00 | NUR ---
ER PHLEB AT BEDSIDE. PT REFUSED BLOOD DRAW.
--- NOTE | 2021-03-25 20:38 | NUR ---
PT AMBULATED TO THE RESTROOM.
--- NOTE | 2021-03-25 21:09 | NUR ---
PT REFUSING TO BE MEDICATED.
--- NOTE | 2021-03-25 22:14 | NUR ---
PT REFUSED ACCU CHECK.
--- NOTE | 2021-03-26 07:18 | NUR ---
RECEIVED REPORT FROM XAVIER WATKINS FOR [facility]. PT IS AAOX4, NOT IN RESPIRATORY DISTRESS, V/S STABLE, KEPT RESTED AND COMFORTABLE. PT STILL REFUSING ACCUCHECK. WILL CONTINUE TO MONITOR.
[2021-03-26] MEDS: BLOOD SUGAR DIAGNOSTIC 1 EACH STRIP IN SCH ×3 (07:30→16:41)
[2021-03-26] MEDS: HEPARIN SODIUM, PORCINE 5000 UNITS/1 ML VIAL SQ SCH (09:00)
[2021-03-26] MEDS ORDERED: NICOTINE PATCH (14MG) 14 MG PATCH.TD24 TD SCH (09:00)
--- NOTE | 2021-03-26 09:40 | NUR ---
dr manny boucher called called and gave permission for patient to smoke
--- NOTE | 2021-03-26 10:17 | NUR ---
REPORT GIVEN TO [facility].
--- NOTE | 2021-03-26 10:30 | NUR ---
tele tower truck driver: admission received pt from stella moyer for tele admission via wheelchair. pt is awake, a/ox4. pt still refusing his blood drawn, iv insertion, refusing to wear hospital gown, refusing tele monitor, and demanding to get his meal and nicotine patch. also pt doesn't want staff to ask more questions re: admission process, stated, "it should have been documented." oriented to room and surroundings. vss, afebrile. instructed to call for assistance.
[2021-03-26 10:40] VITALS: BP 107/70
--- NOTE | 2021-03-26 10:40 | NUR ---
tele wheel alignment technician: notes pt refused to answer when asked about covid vaccine assessment, stated, "it should be on my profile."
--- NOTE | 2021-03-26 11:20 | NUR ---
kendall allann: notes also pt refusing skin assessment and some admission assessment. Addendum: 03/27/21 at 1117 by IVAN SEN LVN including use of dvt pump
--- NOTE | 2021-03-26 14:19 | NUR ---
tele terrazzo worker helper: notes noted discharge order from dr. bernal. cn made aware. f/u made to social secretary and case management.
--- NOTE | 2021-03-26 14:30 | NUR ---
m/s emergency management specialist: s.wTheresa alamo (s.w.) spoke to pt and signed the homeless waiver form and choosing street nursing facility. [facility]. cn aware. f/u made to case management, spoke to [place] and will check his insurance.
--- NOTE | 2021-03-26 14:56 | NUR ---
m/s cafeteria server: notes dr. bernal notified by cn and informed md that pt is agreeable for snf placement and pt may stay today, stated, "okay."
--- NOTE | 2021-03-26 15:10 | NUR ---
Social Service consult: Social service consult requested for homelessness and substance use. Patient is a 66-year-old, male. SW met with patient at his bedside in the med-surg unit. Patient was alert and oriented x4. Patient was calm and resting. Patient stated that he is currently homeless. Patient reported homelessness for the last few weeks and stated that he is currently living on the street. Patient is currently using a cane. Patient currently receives SSDI as a source of income. SW asked patient if he has a history of substance use and patient reported cigarette, alcohol and opiate use. Patient reported daily substance use. Patient denied history of mental illness. Patient denied suicidal or homicidal ideation. SW offered the patient homeless, substance use and medication-assisted treatment resources. Patient accepted the homeless resources but declined substance use and medication-assisted treatment resources. Patient stated, "I don't need them." Patient requested to be discharged to a SNF. SW notified charge nurse, Cheryl. PLAN: Patient requested to be discharged to a SNF. CM to follow up with this discharge plan. RESOURCES: Year-round shelters: [facility] [address] [place] [address] ; [facility] [address] [place] [address]; [facility] [place] [facility] [id number] [facility] [address] SPA 4 | [facility] Recreation [place] Provider: First to Serve Address: [address], [address] # of Beds: 48 Population Served: [facility] Provider: First to Serve Address: 7600 [facility], [address] # of Beds: 73 Population Served: [facility] 6 | [facility] Provider: Home at Last Address: [address] [facility], [address] # of Beds: 63 Population Served: [facility] 3 | [facility] Provider: [facility] [place] Address: [address] [place] [address] # of Beds: 75 Population Served: [facility] 8 | [place] [facility] Provider: [facility] [place] Address: 1085 [facility], [address] # of Beds: 80 Population Served: [place] SPA 1 | [facility] Provider: Miranda PORTER Address: [address] 60[facility], [address] # of Beds: 85 Population Served: [place] SPA 2 | [facility] Provider: Bianca [facility] Address: Confidential (please call for location) # of Beds: 52 Population Served: [place] SPA 4 | [facility] Provider: [facility] Address: [address] [facility], [address] # of Beds: 49 Population Served: [facility] Provider: First To Serve Address: [address] [place] [address] # of Beds: 27 Population Served: [facility] Hygiene: [facility] [facility]: [address] [facility] ; [place] [facility] [address] [facility] ; [facility] 4127 [facility] . Food Resources: [place] [employer] [facility] at [facility]- 5700 [facility]; Meet Each Need with Dignity ([facility]) [address] [facility]; [facility] Food Pantry 4390 [facility] [facility]; [facility] 8568 [facility]. Mental Health resources provided: [facility] [address] [place] [address] ; [facility] [address] [facility] [address], [place] [address] ; Wendy Yang [facility] [address] [place] [address] ; [facility] [place], [place] [address] Healthcare Clinics: [facility] 655[address] [facility], [address] [place]. [place] ; [facility] [address] [facility] [address] [place] [address]; [facility] [address] [place] [address] [phone]
--- NOTE | 2021-03-26 15:40 | NUR ---
m/s supervisor shipping room: notes ely (staci) called me and informed me that [facility] [address]. pt made aware. dr. bernal and cn made aware.
--- NOTE | 2021-03-26 16:05 | NUR ---
m/s advertising associate: notes report given to chanel (rn) at [facility] for continuity of care.
--- NOTE | 2021-03-26 16:15 | NUR ---
tele mental health social worker: notes jessie (friend) notified and made aware re: d'c to snf today, spoke to him over the phone.
--- NOTE | 2021-03-26 17:22 | NUR ---
tele mill laborer: notes discharge instructions given to pt and verbalized understanding. pt remains non-compliant with meds and tx. aware.
--- NOTE | 2021-03-26 17:30 | NUR ---
m/s outbound telemarketer: notes [facility] called and informed me that they will be here around 1900. pt and cn made aware.
--- NOTE | 2021-03-26 19:10 | NUR ---
m/s youth pastor: notes report given to salina (rn) for continuity of care. awaiting for ambulance to come and corn picker pt. all d'c papers signed already by pt.
--- NOTE | 2021-03-26 19:27 | NUR ---
D/C NOTE PATIENT A/OX3. ALL VS WNL. GAVE REPORT TO DICK RIVAS. ALL BELONGINGS BROUGHT WITH PATIENT. NO IV ACCESS. PATIENT IN STABLE CONDITION. PATIENT D/C TO SNF VIA AMBULANCE.
== END 2021-03-26 19:26 | DRG 951 ==
LOC: ER 03:49 → TRANSITION 07:18 → TELE 03-26 09:53
DX: Z76.5 Malingerer [conscious simulation] (principal); R00.2 Palpitations; E11.9 Type 2 diabetes mellitus without complications; F32.9 Major depressive disorder, single episode, unspecified; J44.9 Chronic obstructive pulmonary disease, unspecified; Z20.822 Contact with and (suspected) exposure to COVID-19; Z59.0 Homelessness; F41.9 Anxiety disorder, unspecified; F17.210 Nicotine dependence, cigarettes, uncomplicated; I10 Essential (primary) hypertension; Z91.19 Patient's noncompliance with other medical treatment and regimen; Z71.6 Tobacco abuse counseling
CPT/HCPCS: 36415; 71045-TC; 80048-TC; 80076-TC; 82962-TC; 84443-TC; 84484-TC; 85025-TC; 87081-TC; 93307-TC; G0378; J1644; J2930